=== PATIENT | female | born 1950 | race Caucasian/White ===

== ENCOUNTER 2017-12-18 15:21 | Inpatient (IN) | payer OTHER ==
[~2017-12-18] VITALS: Ht 175.3 cm; Wt 86.2 kg
[~2017-12-18 15:21] MED LIST: FISHOIL PO; FLUT50SP14 NAE; PANT40TA PO
[2017-12-18] MEDS ORDERED: ASPI81TA28 PO (15:44)
[2017-12-18] MEDS ORDERED: PIPERACILLIN/TAZOBACTAM 4.5 GM/100ML D5W IV STA (15:50)
[2017-12-18 16:12] LABS: BASO % 0.2 %; BASO ABS # 0.03 K/uL (0-0.2); EOS % 0.8 %; EOS ABS # 0.12 K/uL (0-0.5); HEMOGLOBIN 13.2 g/dL (12.0-16.0); IG# 0.04 K/uL (0.00-0.02); LYMPH % 22.6 %; MEAN CELL VOLUME 84.8 fL (80-100); MEAN CORPUSCULAR HEMOGLOBIN 29.5 pg (25-34); MEAN CORPUSCULAR HGB CONC 34.7 g/dl (32-36); MEAN PLATELET VOLUME 10.3 fL (7.4-10.4); MONO % 10.9 %; MONO ABS # 1.68 K/uL (0.11-0.59); NEUT % 65.2 %; NEUT ABS # 10.09 K/uL (1.4-6.5); PLATELET COUNT 219 K/uL (130-400); RED CELL DISTRIBUTION WIDTH CV 12.9 % (11.5-14.5); RED CELL DISTRIBUTION WIDTH SD 39.8 fL (36.4-46.3); WHITE BLOOD COUNT 15.46 K/uL (4.8-10.8)
[2017-12-18] MEDS ORDERED: ONDANSETRON INJ 2 MG/ML 2 ML VIAL IV PRN (16:15)
[2017-12-18] MEDS ORDERED: PIPERACILL/TAZOBAC CONSULT ACTIVE PRN (16:15)
[2017-12-18] MEDS ORDERED: MoRPHine SULFATE 2 MG/ML CARP IV PRN (16:15)
--- NOTE | 2017-12-18 16:19 | History and Physical ---
History & Physical Date & Time of Service: Dec 18, 2017 at 16:12 Chief Complaint: Perforated Angel Primary Care Physician: Marjan Mishra D.O. History of Present Illness 67 y/o female with several days lower abdominal pain similar to previous bouts of diverticulitis. Had outpatient CT today, referred to the ED for microperforation. Has had 3 or 4 previous attacks treated with outpatient antibiotics. Past Medical/Surgical History Medical Problems: 1. GERD Surgical history: 1. hysterectomy 2. cholecystectomy 3. tendon repair 4. colonoscopy Social History Smoking Status: Former Smoker Marital Status: Occupational Status: employed Multi-Drug Resistant Organisms History of MDRO: No Allergies Coded Allergies: Metronidazole (Unverified Allergy, Unknown, ., 12/18/17) Prednisone (Verified Allergy, Unknown, HIVES/RACING HEART, 12/18/17) Statins (Unverified Allergy, Unknown, ., 12/18/17) Sulfa Drugs (Verified Allergy, Unknown, ., 12/18/17) Venlafaxine (Verified Allergy, Unknown, ., 12/18/17) Home Medications Scheduled Aspirin (Aspirin Ec), 81 MG PO DAILY Pantoprazole (Protonix), 40 MG PO DAILY Review of Systems Constitutional: No fever, No chills Abdomen: + pain, No nausea, No vomiting Physical Exam Vital Signs Date Time Temp Pulse Resp B/P (MAP) Pulse Ox O2 Delivery O2 Flow Rate FiO2 12/18/17 15:30 37.5 110 17 155/79 96 Room Air General Appearance: WD/WN, no apparent distress Respiratory/Chest: no respiratory distress Cardiovascular: + tachycardia Abdomen/GI: soft, + tenderness (LLQ) Neurologic/Psych: alert, oriented x 3 Diagnostics Laboratory Results Results Past 24 Hours Test 12/18/17 15:55 Range/Units White Blood Count 15.46 4.8-10.8 K/uL Red Blood Count 4.48 4.2-5.4 M/uL Hemoglobin 13.2 12.0-16.0 g/dL Hematocrit 38.0 37-47 % Mean Corpuscular Volume 84.8 80-100 fL Mean Corpuscular Hemoglobin 29.5 25-34 pg Mean Corpuscular Hemoglobin Concent 34.7 32-36 g/dl Platelet Count 219 130-400 K/uL Mean Platelet Volume 10.3 7.4-10.4 fL Neutrophils (%) (Auto) 65.2 % Lymphocytes (%) (Auto) 22.6 % Monocytes (%) (Auto) 10.9 % Eosinophils (%) (Auto) 0.8 % Basophils (%) (Auto) 0.2 % Neutrophils # (Auto) 10.09 1.4-6.5 K/uL Lymphocytes # (Auto) 3.50 1.2-3.4 K/uL Monocytes # (Auto) 1.68 0.11-0.59 K/uL Eosinophils # (Auto) 0.12 0-0.5 K/uL Basophils # (Auto) 0.03 0-0.2 K/uL RDW Standard Deviation 39.8 36.4-46.3 fL RDW Coefficient of Variation 12.9 11.5-14.5 % Immature Granulocyte % (Auto) 0.3 % Immature Granulocyte # (Auto) 0.04 0.00-0.02 K/uL Impression Assessment and Plan diverticulitis with microperforation Does not have any acute abdominal findings. Will admit for IV abx, keep NPO for tonight. Hopefully will respond to conservative therapy. Seen in the ED with Dr. Esquivel. VTE Prophylaxis Risk Level: Very Low
[2017-12-18 16:31] LABS: ALBUMIN 3.4 gm/dl (3.4-5.0); CALCIUM 8.9 mg/dl (8.5-10.1); CREATININE 0.66 mg/dl (0.60-1.20); POTASSIUM 3.7 mmol/L (3.5-5.1)
[2017-12-18 16:33] LABS: TOTAL PROTEIN 8.4 gm/dl (6.4-8.2)
[2017-12-18 17:23] VITALS: BP 144/82; PULSE 104; TEMP 37.2; O2SAT 96; Ht 175.3 cm; Wt 86.2 kg
[2017-12-18] MEDS: D5W AND 1/2NSS + 20MEQ KCL 1,000 ML IV SCH (19:13)
--- NOTE | 2017-12-18 19:48 | EMERGENCY ROOM VISIT NOTE ---
History Report prepared by Tanmay: Astrid Galaviz Under the Supervision of: Dr. Rolando Ernst D.O. First contact with patient: 15:35 Chief Complaint: ABDOMINAL PAIN Stated Complaint: PERFORATED LAZARA History of Present Illness The patient is a 67 year old female who presents to the Emergency Room with complaints of worsening diffuse lower abdominal pain for the past 3-4 days. Her pain is worse on the right side. She has also been having mucousy stools. The patient has a history of diverticulitis. She has had diverticulitis 4-5 times in the past. She states that this feels like her previous episodes of diverticulitis. She describes her abdominal pain as a "sharp, stabbing" pain and rates it as a 10/10 at the most severe. She has been using a heating pad to alleviate her pain. She followed up with her PCP and they ordered Cipro and a CT scan. The patient states that she has not picked up the Cipro from the pharmacy yet. She was called today with the results of the CT. She was told there was a perforation and she should come to the ED for further evaluation. Pt denies headache, change in vision, fevers, chest pain, shortness of breath, nausea, vomiting, diarrhea, urinary symptoms, hematochezia, and melena. Source of History: patient Onset: 3-4 days ago Position: abdomen Symptom Intensity: 10/10 Quality: sharp, stabbing Timing: worsening Modifying Factors (Relieving): heat Associated Symptoms: No fevers, No headache, No chest pain, No SOB, No nausea, No vomiting, No melena, No hematochezia, No diarrhea, No urinary symptoms Review of Systems See HPI for pertinent positives & negatives. A total of 10 systems reviewed and were otherwise negative. Past Medical & Surgical Medical Problems: (1) Diverticulitis large intestine (2) Esophageal reflux (3) Hypertension (4) Prepatellar bursitis (5) Synovitis Surgical Problems: (1) History of hysterectomy (2) Hx of cholecystectomy Family History Cancer Social History Smoking Status: Former Smoker Marital Status: Housing Status: lives with significant other Occupation Status: retired Current/Historical Medications Scheduled Aspirin (Aspirin Ec), 81 MG PO DAILY Pantoprazole (Protonix), 40 MG PO DAILY Allergies Coded Allergies: Metronidazole (Unverified Allergy, Unknown, ., 12/18/17) Prednisone (Verified Allergy, Unknown, HIVES/RACING HEART, 12/18/17) Statins (Unverified Allergy, Unknown, ., 12/18/17) Sulfa Drugs (Verified Allergy, Unknown, ., 12/18/17) Venlafaxine (Verified Allergy, Unknown, ., 12/18/17) Physical Exam Vital Signs Date Time Temp Pulse Resp B/P (MAP) Pulse Ox O2 Delivery O2 Flow Rate FiO2 12/18/17 15:30 37.5 110 17 155/79 96 Room Air Physical Exam GENERAL: Sitting up in bed, alert, well appearing, well nourished, no distress, non-toxic EYE EXAM: normal conjunctiva. OROPHARYNX: no exudate, no erythema, lips, buccal mucosa, and tongue normal and mucous membranes are moist NECK: supple, no nuchal rigidity, no adenopathy, non-tender LUNGS: Clear to auscultation. Normal chest wall mechanics HEART: no murmurs, S1 normal and S2 normal ABDOMEN: abdomen soft, acute reproducible tenderness throughout the lower abdomen, normo-active bowel sounds, no masses, no rebound or guarding. BACK: Back is symmetrical on inspection and there is no deformity, no midline tenderness, no CVA tenderness. SKIN: no rashes and no bruising UPPER EXTREMITIES: upper extremities are grossly normal. LOWER EXTREMITIES: No pitting edema. NEURO EXAM: Normal sensorium, cranial nerves II-XII grossly intact, normal speech, no gross weakness of arms, no gross weakness of legs. Medical Decision & Procedures Laboratory Results 12/18/17 15:55 Red Blood Count 4.48, Mean Corpuscular Volume 84.8, Mean Corpuscular Hemoglobin 29.5, Mean Corpuscular Hemoglobin Concent 34.7, Mean Platelet Volume 10.3, Neutrophils (%) (Auto) 65.2, Lymphocytes (%) (Auto) 22.6, Monocytes (%) (Auto) 10.9, Eosinophils (%) (Auto) 0.8, Basophils (%) (Auto) 0.2, Neutrophils # (Auto ) 10.09, Lymphocytes # (Auto) 3.50, Monocytes # (Auto) 1.68, Eosinophils # (Auto ) 0.12, Basophils # (Auto) 0.03 12/18/17 15:55 Test 3/20/18 15:55 12/18/17 16:00 White Blood Count 15.46 K/uL (4.8-10.8) Red Blood Count 4.48 M/uL (4.2-5.4) Hemoglobin 13.2 g/dL (12.0-16.0) Hematocrit 38.0 % (37-47) Mean Corpuscular Volume 84.8 fL (80-100) Mean Corpuscular Hemoglobin 29.5 pg (25-34) Mean Corpuscular Hemoglobin Concent 34.7 g/dl (32-36) Platelet Count 219 K/uL (130-400) Mean Platelet Volume 10.3 fL (7.4-10.4) Neutrophils (%) (Auto) 65.2 % Lymphocytes (%) (Auto) 22.6 % Monocytes (%) (Auto) 10.9 % Eosinophils (%) (Auto) 0.8 % Basophils (%) (Auto) 0.2 % Neutrophils # (Auto) 10.09 K/uL (1.4-6.5) Lymphocytes # (Auto) 3.50 K/uL (1.2-3.4) Monocytes # (Auto) 1.68 K/uL (0.11-0.59) Eosinophils # (Auto) 0.12 K/uL (0-0.5) Basophils # (Auto) 0.03 K/uL (0-0.2) RDW Standard Deviation 39.8 fL (36.4-46.3) RDW Coefficient of Variation 12.9 % (11.5-14.5) Immature Granulocyte % (Auto) 0.3 % Immature Granulocyte # (Auto) 0.04 K/uL (0.00-0.02) Anion Gap 8.0 mmol/L (3-11) Est Creatinine Clear Calc Drug Dose 99.6 ml/min Estimated GFR () 107.4 Estimated GFR (Non- 92.7 BUN/Creatinine Ratio 14.8 (10-20) Calcium Level 8.9 mg/dl (8.5-10.1) Total Bilirubin 0.8 mg/dl (0.2-1) Direct Bilirubin 0.2 mg/dl (0-0.2) Aspartate Amino Transf (AST/SGOT) 13 U/L (15-37) Alanine Aminotransferase (ALT/SGPT) 10 U/L (12-78) Alkaline Phosphatase 89 U/L (45-117) Total Protein 8.4 gm/dl (6.4-8.2) Albumin 3.4 gm/dl (3.4-5.0) Lipase 117 U/L (73-393) Urine Color YELLOW Urine Appearance CLEAR (CLEAR) Urine pH 6.5 (4.5-7.5) Urine Specific [place] <= 1.005 (1.000-1.030) Urine Protein TRACE (NEG) Urine Glucose (UA) NEG (NEG) Urine Ketones NEG (NEG) Urine Occult Blood 1+ (NEG) Urine Nitrite NEG (NEG) Urine Bilirubin NEG (NEG) Urine Urobilinogen NEG (NEG) Urine Leukocyte Esterase NEG (NEG) Urine RBC 0-4 /hpf (0-4) Urine WBC 1-5 /hpf (0-5) Urine Epithelial Cells 0-5 /lpf (0-5) Urine Bacteria NEG (NEG) Laboratory results per my review. Medications Administered Medications (Trade) Dose Ordered Sig/Christina Route Start Time Stop Time Status Last Admin Dose Admin Piperacillin Sod/ Tazobactam Sod (Zosyn Iv) 4.5 gm NOW STAT IV 12/18/17 15:50 12/18/17 15:51 DC 12/18/17 15:56 4.5 GM ED Course ED COURSE: Vital signs were reviewed and showed tachycardic, hypertensive. The patients medical record was reviewed The above diagnostic studies were performed and reviewed. ED treatments and interventions as stated above. 1535: The patient was evaluated in room A10. A complete history and physical examination was performed. 1550: Zosyn 4.5 gm IV 1551: I spoke with Dr. Esquivel of general surgery. The patient will be taken to the OR for further management. 1555: Upon reevaluation, the patient is stable. I discussed my findings with the patient and she understands and agrees with the treatment plan. Based on the patients age, coexisting illnesses, exam and lab findings the decision to treat as an inpatient was made. The patient remained stable while under my care. The patient will be evaluated for further management. Medical Decision Differential diagnoses includes but is not limited to gastritis, peptic ulcer disease, GERD, gallbladder disease, pancreatitis, small bowel obstruction, acute coronary syndrome, pericarditis, ischemic bowel, irritable bowel disease, irritable bowel syndrome, appendicitis, diverticulitis, malignancy, hernia, urinary tract infection, torsion, perforation, trauma, infectious. Patient is a 67-year-old female who presents the ER following a CT which shows perforated diverticulitis which is walled off. Outpatient records were reviewed including CT scan which showed the walled off diverticulitis of the sigmoid. Patient is a mild leukocytosis. BMP along with LFTs, bilirubin lipase was normal. UA unremarkable. I did review the CT done as an outpatient. Patient was given IV antibiotics. I discussed case with general surgery. She was admitted for further workup. Patient was updated at bedside and admitted to general surgery. Medication Reconcilliation Current Medication List: was personally reviewed by me Blood Pressure Screening Patient's blood pressure: Elevated blood pressure Blood pressure disposition: Elevated BP felt to be situational Consults Time Called: 1550 Consulting Physician: Dr. Esquivel Returned Call: [phone] sEquivel of general surgery. The patient will be taken to the OR for further management. Impression Primary Impression: Diverticulitis of intestine with perforation Additional Impression: Leukocytosis Scribe Attestation The scribe's documentation has been prepared under my direction and personally reviewed by me in its entirety. I confirm that the note above accurately reflects all work, treatment, procedures, and medical decision making performed by me. Departure Information Dispostion Being Evaluated By Surgeon Referrals No Doctor, Assigned (PCP) Patient Instructions My [facility] Problem Qualifiers Primary Impression: Diverticulitis of intestine with perforation Diverticulitis site: unspecified part of intestinal tract Diverticulitis bleeding: unspecified bleeding status Qualified Codes: K57.80 - Diverticulitis of intestine, part unspecified, with perforation and abscess without bleeding Additional Impression: Leukocytosis Leukocytosis type: unspecified Qualified Codes: D72.829 - Elevated white blood cell count, unspecified
[2017-12-18] MEDS: PIPERACILL/TAZOBAC IV 3.375 GM in DEXTROSE 5% 100ML 100 ML IV SCH (21:40)
[2017-12-18 23:04] VITALS: BP 121/75; PULSE 91; TEMP 37; O2SAT 98
[2017-12-19] MEDS: D5W AND 1/2NSS + 20MEQ KCL 1,000 ML IV SCH (03:14)
[2017-12-19] MEDS: PIPERACILL/TAZOBAC IV 3.375 GM in DEXTROSE 5% 100ML 100 ML IV SCH (05:28)
--- NOTE | 2017-12-19 07:37 | Surgery Progress Note ---
Surgery Progress Note Date of Service Dec 19, 2017. Subjective + feeling well, + flatus, No bowel movement, No nausea Objective Vital Signs: Date Time Temp Pulse Resp B/P (MAP) Pulse Ox O2 Delivery O2 Flow Rate FiO2 12/18/17 23:25 Room Air 12/18/17 23:04 37.0 91 17 121/75 (90) 98 Room Air 12/18/17 17:23 37.2 104 18 144/82 96 Room Air 12/18/17 17:23 Room Air 12/18/17 17:04 108 143/75 96 12/18/17 15:30 37.5 110 17 155/79 96 Room Air Abdomen: soft, + tenderness (minimal suprapubic) Laboratory Results: Results Past 24 Hours Test 12/18/17 15:55 12/18/17 16:00 12/19/17 04:44 Range/Units White Blood Count 15.46 4.8-10.8 K/uL Red Blood Count 4.48 4.2-5.4 M/uL Hemoglobin 13.2 12.0-16.0 g/dL Hematocrit 38.0 37-47 % Mean Corpuscular Volume 84.8 80-100 fL Mean Corpuscular Hemoglobin 29.5 25-34 pg Mean Corpuscular Hemoglobin Concent 34.7 32-36 g/dl Platelet Count 219 130-400 K/uL Mean Platelet Volume 10.3 7.4-10.4 fL Neutrophils (%) (Auto) 65.2 % Lymphocytes (%) (Auto) 22.6 % Monocytes (%) (Auto) 10.9 % Eosinophils (%) (Auto) 0.8 % Basophils (%) (Auto) 0.2 % Neutrophils # (Auto) 10.09 1.4-6.5 K/uL Lymphocytes # (Auto) 3.50 1.2-3.4 K/uL Monocytes # (Auto) 1.68 0.11-0.59 K/uL Eosinophils # (Auto) 0.12 0-0.5 K/uL Basophils # (Auto) 0.03 0-0.2 K/uL RDW Standard Deviation 39.8 36.4-46.3 fL RDW Coefficient of Variation 12.9 11.5-14.5 % Immature Granulocyte % (Auto) 0.3 % Immature Granulocyte # (Auto) 0.04 0.00-0.02 K/uL Sodium Level 132 136-145 mmol/L Potassium Level 3.7 3.5-5.1 mmol/L Chloride Level 100 98-107 mmol/L Carbon Dioxide Level 24 21-32 mmol/L Anion Gap 8.0 3-11 mmol/L Blood Urea Nitrogen 10 7-18 mg/dl Creatinine 0.66 0.60-1.20 mg/dl Est Creatinine Clear Calc Drug Dose 99.6 ml/min Estimated GFR () 107.4 Estimated GFR (Non- 92.7 BUN/Creatinine Ratio 14.8 10-20 Random Glucose 103 70-99 mg/dl Calcium Level 8.9 8.5-10.1 mg/dl Total Bilirubin 0.8 0.2-1 mg/dl Direct Bilirubin 0.2 0-0.2 mg/dl Aspartate Amino Transf (AST/SGOT) 13 15-37 U/L Alanine Aminotransferase (ALT/SGPT) 10 12-78 U/L Alkaline Phosphatase 89 45-117 U/L Total Protein 8.4 6.4-8.2 gm/dl Albumin 3.4 3.4-5.0 gm/dl Lipase 117 73-393 U/L Urine Color YELLOW Urine Appearance CLEAR CLEAR Urine pH 6.5 4.5-7.5 Urine Specific [place] <= 1.005 1.000-1.030 Urine Protein TRACE NEG Urine Glucose (UA) NEG NEG Urine Ketones NEG NEG Urine Occult Blood 1+ NEG Urine Nitrite NEG NEG Urine Bilirubin NEG NEG Urine Urobilinogen NEG NEG Urine Leukocyte Esterase NEG NEG Urine RBC 0-4 0-4 /hpf Urine WBC 1-5 0-5 /hpf Urine Epithelial Cells 0-5 0-5 /lpf Urine Bacteria NEG NEG Assessment & Plan diverticulitis with microperf labs pending exam improved afebrile but HR 90's continue IV abx, can have clears
[2017-12-19 08:00] VITALS: BP 127/83; PULSE 88; TEMP 36.8; O2SAT 95
[2017-12-19 08:25] LABS: BASO % 0.3 %; BASO ABS # 0.03 K/uL (0-0.2); EOS % 1.8 %; EOS ABS # 0.21 K/uL (0-0.5); HEMATOCRIT 38.9 % (37-47); HEMOGLOBIN 12.9 g/dL (12.0-16.0); IG# 0.03 K/uL (0.00-0.02); LYMPH % 19.5 %; LYMPH ABS # 2.27 K/uL (1.2-3.4); MEAN CELL VOLUME 85.5 fL (80-100); MEAN CORPUSCULAR HEMOGLOBIN 28.4 pg (25-34); MEAN CORPUSCULAR HGB CONC 33.2 g/dl (32-36); MEAN PLATELET VOLUME 10.4 fL (7.4-10.4); MONO % 9.6 %; MONO ABS # 1.11 K/uL (0.11-0.59); NEUT % 68.5 %; NEUT ABS # 7.97 K/uL (1.4-6.5); PLATELET COUNT 220 K/uL (130-400); RED CELL DISTRIBUTION WIDTH CV 12.9 % (11.5-14.5); RED CELL DISTRIBUTION WIDTH SD 40.2 fL (36.4-46.3); WHITE BLOOD COUNT 11.62 K/uL (4.8-10.8)
[2017-12-19 08:27] VITALS: O2SAT 95
[2017-12-19 08:53] LABS: CALCIUM 8.6 mg/dl (8.5-10.1); CREATININE 0.62 mg/dl (0.60-1.20); POTASSIUM 3.7 mmol/L (3.5-5.1)
[2017-12-19] MEDS ORDERED: ASPIRIN 81 MG ECTAB PO SCH (09:00)
[2017-12-19] MEDS ORDERED: PANTOprazole SOD 40 MG TAB PO SCH (09:00)
--- NOTE | 2017-12-19 11:35 | Discharge Instructions ---
Discharge Instructions Date of Service Dec 19, 2017. Admission Reason for Admission: Diverticulitis Large Intestine Discharge Discharge Diagnosis / Problem: Diverticulitis Large Intestine Discharge Goals Goal(s): Decrease discomfort, Improve function Activity Recommendations Activity Limitations: as noted below Lifting Limitations: gradually increase as tolerated Exercise/Sports Limitations: gradually increase as tolerated May Resume Sexual Activity: when tolerated Shower/Bathe: no limitations Driving or Machine Use: no limitations . Instructions / Follow-Up Instructions / Follow-Up Please follow a low fiber diet. Please follow-up with Dr. Esquivel in the General Surgery Clinic located at [address] [place] [address] in 1-2 weeks. Please call the office at to make this appointment. Please call the office with any questions or concerns. Current Hospital Diet Patient's current hospital diet: Clear Liquid Diet Discharge Diet Recommended Diet: Low Fiber Diet Pending Studies Studies pending at discharge: no Medical Emergencies . Who to Call and When: Medical Emergencies: If at any time you feel your situation is an emergency, please call 911 immediately. . Non-Emergent Contact Non-Emergency issues call your: Primary Care Provider, Surgeon Call Non-Emergent contact if: temperature is above 101.5, your pain is not controlled . "Provider Documentation" section prepared by Christina Vang. .
[2017-12-19] MEDS ORDERED: AMOX875T PO (11:36)
[2017-12-19 12:07] VITALS: BP 127/83; PULSE 88; TEMP 36.8; O2SAT 95
--- NOTE | 2017-12-24 09:25 | DISCHARGE SUMMARY ---
PRIMARY DISCHARGE DIAGNOSIS: Diverticulitis with microperforation. SECONDARY DISCHARGE DIAGNOSIS: Gastroesophageal reflux disease. HOSPITAL COURSE: The patient is a 67-year-old female with a history of several diverticulitis attacks, referred to the Emergency Room after outpatient CT showing diverticulitis with microperforation. Her white count was 15,000. She was admitted to the general surgery service, started on IV Zosyn. She made significant progress over the next 24 hours. Her white count had improved. She was able to tolerate an advancing diet. She was stable for discharge home on oral antibiotics. DISCHARGE INSTRUCTIONS: Discharge home. Follow up with Dr. Esquivel in 2 weeks. DISCHARGE MEDICATIONS: Augmentin 875 mg p.o. b.i.d. x10 and resume her home medications of aspirin 81 mg daily and Protonix 40 mg p.o. daily.
== END 2017-12-19 13:19 | disposition home or self-care (01) | DRG 392 ==
LOC: C.EDB 15:24 → C.MSW 16:12 → ENRESERV 16:46
PROVIDERS: ADMIT Surgery; ATTEND Surgery
DX: K57.80 Diverticulitis of intestine, part unspecified, with perforation and abscess without bleeding (principal); K21.9 Gastro-esophageal reflux disease without esophagitis; I10 Essential (primary) hypertension; Z87.891 Personal history of nicotine dependence; Z88.2 Allergy status to sulfonamides; Z88.8 Allergy status to other drugs, medicaments and biological substances; Z79.82 Long term (current) use of aspirin

== ENCOUNTER 2018-01-17 10:00 | Inpatient (IN) | payer OTHER ==
[2018-01-04 13:45] VITALS: BMI 27.0
[~2018-01-17] VITALS: Ht 175.3 cm; Wt 84.0 kg
[2018-01-17] VITALS (9 sets, daily range): BP systolic 147–165; BP diastolic 70–81; PULSE 89–98; TEMP 36.4–36.9; O2SAT 95–100
--- NOTE | 2018-01-17 09:48 | History & Physical Bridge Note ---
H&P Re-Evaluation Bridge Note: I have examined the patient, reviewed the History & Physical and in the interval since the performance of the History & Physical I have noted the following changes of clinical significance: No changes noted
[~2018-01-17 10:00] MED LIST changes: +ASPI81TA28 PO; +ATROPINE SULFATE 0.1 MG/ML 5ML SYR IV PRN; +CEFAZOLIN 2000MG IV PUSH 15 ML IV SCH; +EpHEDrine SULFATE INJ 50 MG/ML AMP IV PRN; -FISHOIL PO; -FLUT50SP14 NAE; +HEPARIN SOD 5000 UNIT/0.5 ML CARP SQ SCH; +HYDROmorphone INJ 2 MG/ML SYR/VIAL IV PRN; +LABETALOL HCL IV 5 MG/ML 20ML IV PRN; +LACTATED RINGER'S 1000ML 1,000 ML IV SCH; +MEPERIDINE HCL 25 MG/ML CARP IV PRN; +ONDANSETRON INJ 2 MG/ML 2 ML VIAL IV PRN
[2018-01-17] MEDS ORDERED: BUPIVACAINE/EPINEPHRINE 0.5% MPF 1:200,000 30 ML VIAL ONE (10:03)
[2018-01-17] MEDS ORDERED: MIDAZOLAM HCL 1 MG/ML 2ML VIAL ONE (10:50)
[2018-01-17] MEDS ORDERED: FENTANYL CITRATE INJ 50 MCG/1 ML 2 ML VIAL ONE ×3 (10:50→11:44)
[2018-01-17] MEDS ORDERED: HYDROmorphone INJ 2 MG/ML SYR/VIAL ONE ×2 (11:48→13:05)
--- NOTE | 2018-01-17 13:02 | [facility] Post Operative Brief Note ---
Immediate Operative Summary Operative Date Jan 17, 2018. Pre-Operative Diagnosis Diverticulitis Post-Operative Diagnosis Same as preop Procedure(s) Performed Laparoscopic Sigmoid Colon Resection; Enterolysis; Left Salpingo-Oophorectomy Surgeon Dr. Esquivel Apron Cleaner Surgeon(s) Dru Rubio PA-C Estimated Blood Loss 30 ml Findings See Below left ovary/tube severely adhesed to sigmoid colon Specimens A. Sigmoid Colon B. Left Tube and Ovary Anesthesia Type General Complication(s) none
[2018-01-17] MEDS ORDERED: KETOROLAC TROMETHAMINE 30 MG/ML VIAL ONE (13:13)
[2018-01-17] MEDS ORDERED: DEXAMETHASONE SOD INJ 4 MG/ML VIAL ONE (13:13)
[2018-01-17] MEDS ORDERED: ONDANSETRON INJ 2 MG/ML 2 ML VIAL ONE (13:13)
[2018-01-17] MEDS ORDERED: GLYCOPYRROLATE INJ 0.2 MG/ML VIAL ONE (13:13)
[2018-01-17] MEDS ORDERED: ROCURONIUM BROMIDE 10 MG/ML 5 ML VIAL IV ONE (13:13)
[2018-01-17] MEDS ORDERED: NEOSTIGMINE METHYLSULFATE 5 MG/5 ML SYR ONE (13:13)
[2018-01-17] MEDS ORDERED: LIDOCAINE HCL 2% 2 ML VIAL (20MG/ML) ONE (13:13)
[2018-01-17] MEDS ORDERED: PROPOFOL IV EMULSION 10 MG/ML 20 ML VIAL IV ONE (13:13)
[2018-01-17] MEDS ORDERED: MoRPHine SULFATE 4 MG/ML 1 ML CARP\\VIAL IV PRN (13:15)
[2018-01-17] MEDS ORDERED: ESMOLOL HCL 10 MG/ML 10 ML VIAL ONE (13:18)
[2018-01-17] MEDS: FENTANYL CITRATE INJ 50 MCG/1 ML 2 ML VIAL IV PRN ×2 (13:32→13:55)
[2018-01-17] MEDS ORDERED: NURSING VERBAL MED ORDER ONE (14:00)
--- NOTE | 2018-01-17 14:01 | Anesthesiology Progress Note ---
Anesthesia Post Op Note Date & Time Jan 17, 2018 at 14:01 Vital Signs Pain Intensity: 4.0 Vital Signs Past 12 Hours Date Time Temp Pulse Resp B/P (MAP) Pulse Ox O2 Delivery O2 Flow Rate FiO2 01/17/18 13:50 91 13 156/64 95 Nasal Cannula 2 01/17/18 13:40 88 12 159/66 99 Oxymask 10 01/17/18 13:30 86 16 163/75 99 Oxymask 10 01/17/18 13:20 36.3 84 18 105/96 97 Oxymask 10 01/17/18 10:26 36.9 96 18 152/81 97 Room Air Notes Mental Status: alert / awake / arousable, participated in evaluation Pt Amnestic to Procedure: Yes Nausea / Vomiting: adequately controlled Pain: adequately controlled Airway Patency, RR, SpO2: stable & adequate BP & HR: stable & adequate Hydration State: stable & adequate Anesthetic Complications: no major complications apparent
[2018-01-17] MEDS ORDERED: PROMETHAZINE HCL INJ 12.5 MG in SODIUM CHLORIDE 0.9% 50ML 50 ML IV ONE (14:15)
--- NOTE | 2018-01-17 14:48 | [facility] Operative Report ---
Operative Report Operative Date Jan 17, 2018. Pre-Operative Diagnosis Diverticulitis Post-Operative Diagnosis Same as preop Procedure(s) Performed Laparoscopic Sigmoid Colon Resection; Enterolysis; Left Salpingo-Oophorectomy Surgeon Dr. Esquivel Coach Mechanic Surgeon(s) Dru Rubio PA-C Estimated Blood Loss 30 ml Findings left ovary/tube severely adhesed to sigmoid colon Specimens A. Sigmoid Colon B. Left Tube and Ovary Anesthesia Type General Complication(s) none Description of Procedure After informed consent was obtained the patient was taken to the operating room and placed in the supine position. After successful intubation the right arm was tucked and a Fay catheter was placed. The patient was then placed into a low lithotomy position. The abdomen and perineum were sterilely prepped and draped in usual fashion. I began with an infraumbilical incision with 11 blade scalpel and carried this down through the soft tissue using electrocautery. The anterior rectus fascia was opened using electrocautery and 2 #0 Vicryl stay sutures were placed. Peritoneum was entered using blunt finger penetration and a finger sweep was performed to take down any underlying adhesions. A 12 mm Crum trocar was placed in the abdomen was insufflated to 20 mm hg. The laparoscope was inserted and the abdomen was examined in 360. I placed a right lower quadrant 12 mm trocar and a right mid abdominal 5 mm trocar. Eventually we would place a left lower quadrant 5 mm trocar as well. The patient was placed in a Trendelenburg position and slightly air planed to the right. There were some adhesions in the lower abdomen which I took down using blunt dissection as well as a harmonic scalpel. I then mobilized and evaluated the left and sigmoid colon. From the peritoneal reflection up to the proximal sigmoid colon there was obvious evidence of chronic inflammation with fat wrapping and firmness. This was much different than the remainder of her left colon and rectum. I began by mobilizing the left colon along the white line of Toldt. We carried this down to the peritoneal reflection in the pelvis. We were able to identify the left ureter to keep it out of harm's way. However during my dissection we realized that the left ovary and fallopian tube were essentially to the inflamed sigmoid colon. Initially I tried to dissect this free however it was going to be apparent that it would be too dangerous to leave it for fear of ischemia. We would end up totally resecting the ovary and fallopian tube at the end of the case. Nonetheless after mobilizing the colon I picked a spot in the proximal sigmoid colon and made a small window in the mesentery. I used a NICOL purple cartridge stapler to transect the colon in this area. I then used the sonocision to take down the mesentery of the sigmoid colon down to the rectum itself. When we got down past the area of chronic inflammation I then transected the rectum again with a NICOL purple cartridge stapler. I finished mobilizing the left colon. There was plenty of nice soft viable bowel that would come down into the pelvis to create anastomosis. We extended the left lower quadrant incision including the fascia and delivered the specimen out of this and sent at the pathology. We then delivered the distal left colon out of the same incision using a Michele clamp. I resected about another 2-3 inches because of some fat wrapping in this area as well. We just did this by stapling it off with a purple cartridge stapler. Next we trimmed the fat off of the end of the colon and then opened up the staple line. We used sizers to estimate the lumen to be 25 mm. A 2-0 silk was used to create a pursestring and the anvil of the stapler was placed into the end of the colon and secured with the pursestring. This was then put back into the abdominal cavity. The fascia this incision was then closed using 0 PDS in running fashion. Next a reinsufflated the abdomen. The anvil laid over the pelvic brim and into the pelvis without any tension. I elevated the remainder of the ovary and left fallopian tube. I used a brown cartridge stapler to transect the ovarian vessels and remove the ovary and fallopian tube and sent as a specimen as well. Certainly they did not look healthy and thus they made the decision to remove it in addition to the left colon. Next we inserted sizers into the rectum. We then placed the handle of the circular stapler into the rectum and out to the staple line. The spike was deployed. The handle was connected to the anvil and they were secured together and fired creating a circular functional end-to-end anastomosis. We then filled the pelvis with fluid and I pinched off the proximal colon. We inflated the anastomosis with a rigid sigmoidoscope. There was no evidence of any air leak. I then thoroughly irrigated the pelvis. Both donuts were intact. I placed a 10 flat Farhad- Peterson drain into the pelvis and brought out through 1 of the port sites. It was secured to skin using 2-0 silk. One final irrigation was performed. There was adequate hemostasis at the end of the procedure. We did look around the abdomen and saw no other gross abnormalities. The trochars were all removed and the abdomen was desufflated. The fascia of the camera port was closed using 0 Vicryl in a [id number] fashion. All wounds were irrigated. The larger wound was closed with 3-0 Vicryl and then 4-0 Monocryl for the skin. The smaller incisions were closed with 4-0 Monocryl. Marcaine was injected around them for postoperative analgesia and skin glue used as a dressing. The patient was awaken extubated and transferred to recovery in stable condition. My physician's prosthetic assistant was present throughout the entire case. He helps prep the patient. He helped with manipulation of the bowel as well as managing the camera throughout the case. He helped with the anastomosis as well as wound closure and dressing placement at the end of the case. I attest to the content of the Intraoperative Record and any orders documented therein. Any exceptions are noted below.
[2018-01-17] MEDS: ONDANSETRON INJ 2 MG/ML 2 ML VIAL IV PRN ×2 (15:30→21:10)
[2018-01-17] MEDS: LACTATED RINGER'S 1000ML 1,000 ML IV SCH ×2 (15:31→22:24)
[2018-01-17] MEDS: ACETAMINOPHEN IV 100 ML IV SCH ×2 (15:52→23:50)
[2018-01-17] MEDS: CEFOXITIN IV 2,000 MG in DEXTROSE 5% 50ML 50 ML IV SCH ×2 (17:39→22:24)
[2018-01-18 03:46] VITALS: BP 124/66; PULSE 89; TEMP 36.8; O2SAT 94
[2018-01-18] MEDS: CEFOXITIN IV 2,000 MG in DEXTROSE 5% 50ML 50 ML IV SCH (04:57)
[2018-01-18] MEDS: LACTATED RINGER'S 1000ML 1,000 ML IV SCH ×3 (04:58→22:30)
[2018-01-18 07:08] LABS: BASO % 0.2 %; BASO ABS # 0.02 K/uL (0-0.2); EOS % 0.2 %; EOS ABS # 0.02 K/uL (0-0.5); HEMATOCRIT 34.4 % (37-47); HEMOGLOBIN 11.9 g/dL (12.0-16.0); IG# 0.04 K/uL (0.00-0.02); LYMPH % 26.1 %; LYMPH ABS # 3.19 K/uL (1.2-3.4); MEAN CELL VOLUME 83.9 fL (80-100); MEAN CORPUSCULAR HGB CONC 34.6 g/dl (32-36); MEAN PLATELET VOLUME 10.5 fL (7.4-10.4); MONO ABS # 1.35 K/uL (0.11-0.59); NEUT % 62.2 %; NEUT ABS # 7.62 K/uL (1.4-6.5); PLATELET COUNT 214 K/uL (130-400); RED CELL DISTRIBUTION WIDTH CV 12.7 % (11.5-14.5); RED CELL DISTRIBUTION WIDTH SD 38.8 fL (36.4-46.3); WHITE BLOOD COUNT 12.24 K/uL (4.8-10.8)
--- NOTE | 2018-01-18 07:09 | Surgery Progress Note ---
Surgery Progress Note Date of Service Jan 18, 2018. Subjective Post OP Day: 1 + feeling well, + pain controlled, No nausea Objective Vital Signs: Date Time Temp Pulse Resp B/P (MAP) Pulse Ox O2 Delivery O2 Flow Rate FiO2 01/18/18 03:46 36.8 89 16 124/66 (85) 94 Room Air 01/17/18 23:50 Room Air 01/17/18 23:04 36.8 90 16 150/75 (100) 96 Room Air 01/17/18 18:07 36.6 98 16 147/76 (99) 99 Room Air 01/17/18 17:35 99 Room Air 01/17/18 16:40 36.4 90 16 165/78 (107) 100 Room Air 01/17/18 15:43 36.5 90 16 165/75 (105) 99 Nasal Cannula 01/17/18 15:20 Nasal Cannula 2.0 01/17/18 15:07 36.4 89 16 159/75 (103) 99 2.0 01/17/18 14:42 95 Nasal Cannula 2.0 01/17/18 14:40 95 Nasal Cannula 2.0 01/17/18 14:38 36.4 91 15 158/70 (99) 95 Nasal Cannula 2.0 01/17/18 14:30 92 19 151/63 96 Nasal Cannula 2 01/17/18 14:20 88 20 150/66 98 Nasal Cannula 2 01/17/18 14:10 36.6 87 15 147/63 96 Nasal Cannula 2 01/17/18 14:00 91 15 154/61 98 Nasal Cannula 2 01/17/18 13:50 91 13 156/64 95 Nasal Cannula 2 01/17/18 13:40 88 12 159/66 99 Oxymask 10 01/17/18 13:30 86 16 163/75 99 Oxymask 10 01/17/18 13:20 36.3 84 18 105/96 97 Oxymask 10 01/17/18 10:26 36.9 96 18 152/81 97 Room Air Physical Exam: PATY drainage (20), urine output (2300) Abdomen: non tender, non distended, soft Incision(s): clean, dry, ecchymosis Laboratory Results: Results Past 24 Hours Test 01/18/18 06:25 Range/Units Assessment & Plan s/p lap sigmoid colectomy d/c saldana begin clears Lovenox to start today labs pending
[2018-01-18 07:14] LABS: PTT PATIENT 24.7 SECONDS (21.0-31.0)
--- NOTE | 2018-01-18 07:14 | Surgery Progress Note ---
Surgery Progress Note Date of Service Jan 18, 2018. Subjective Post OP Day: 1 + feeling well, + pain controlled, + diet (Tolerating chips/sips), No complaints , No bowel movement, No flatus, No nausea, No vomiting Patient reports her saldana is uncomfortable and she would like it removed so that she can start ambulating. Objective Vital Signs: Date Time Temp Pulse Resp B/P (MAP) Pulse Ox O2 Delivery O2 Flow Rate FiO2 01/18/18 03:46 36.8 89 16 124/66 (85) 94 Room Air 01/17/18 23:50 Room Air 01/17/18 23:04 36.8 90 16 150/75 (100) 96 Room Air 01/17/18 18:07 36.6 98 16 147/76 (99) 99 Room Air 01/17/18 17:35 99 Room Air 01/17/18 16:40 36.4 90 16 165/78 (107) 100 Room Air 01/17/18 15:43 36.5 90 16 165/75 (105) 99 Nasal Cannula 01/17/18 15:20 Nasal Cannula 2.0 01/17/18 15:07 36.4 89 16 159/75 (103) 99 2.0 01/17/18 14:42 95 Nasal Cannula 2.0 01/17/18 14:40 95 Nasal Cannula 2.0 01/17/18 14:38 36.4 91 15 158/70 (99) 95 Nasal Cannula 2.0 01/17/18 14:30 92 19 151/63 96 Nasal Cannula 2 01/17/18 14:20 88 20 150/66 98 Nasal Cannula 2 01/17/18 14:10 36.6 87 15 147/63 96 Nasal Cannula 2 01/17/18 14:00 91 15 154/61 98 Nasal Cannula 2 01/17/18 13:50 91 13 156/64 95 Nasal Cannula 2 01/17/18 13:40 88 12 159/66 99 Oxymask 10 01/17/18 13:30 86 16 163/75 99 Oxymask 10 01/17/18 13:20 36.3 84 18 105/96 97 Oxymask 10 01/17/18 10:26 36.9 96 18 152/81 97 Room Air Physical Exam: PATY drainage (105 ml yesterday, 20 ml so far today. Serosang.) General Appearance: WD/WN, no apparent distress Head: normocephalic, atraumatic Neck: trachea midline Respiratory/Chest: no respiratory distress, no accessory muscle use Abdomen: soft, no organomegaly, no pulsatile mass, + distended (mild), + tenderness (Incisional mild) Incision(s): clean, dry, intact, no erythema, no drainage Laboratory Results: Results Past 24 Hours Test 01/18/18 06:25 Range/Units Assessment & Plan POD #1 s/p Laparoscopic Sigmoid Colon Resection; Enterolysis; Left Salpingo- Oophorectomy. Doing well, pain controlled. Mild incisional tenderness, abdomen soft, mildly distended. Tolerating chips/sips, No N/V. No flatus or BM yet. Saldana in place. PATY in place. Patient reports saldana uncomfortable and would like removed - will d/c. Start clears - advance as bowel fx returns. Keep PATY. Lovenox starting this AM. Will discuss findings with Dr. Esquivel. Please contact with questions or concerns.
[2018-01-18 07:25] VITALS: BP 142/75; PULSE 79; TEMP 36.7; O2SAT 97
[2018-01-18 07:38] LABS: CALCIUM 8.7 mg/dl (8.5-10.1); CREATININE 0.89 mg/dl (0.60-1.20); POTASSIUM 3.4 mmol/L (3.5-5.1)
[2018-01-18] MEDS: PANTOprazole SOD 40 MG TAB PO SCH (07:41)
[2018-01-18] MEDS: ACETAMINOPHEN IV 100 ML IV SCH (07:42)
--- NOTE | 2018-01-18 08:14 | Anesthesiology Progress Note ---
Anesthesia Post Op Note Date & Time Jan 18, 2018 at 08:14 Vital Signs Pain Intensity: 0.0 Vital Signs Past 12 Hours Date Time Temp Pulse Resp B/P (MAP) Pulse Ox O2 Delivery O2 Flow Rate FiO2 01/18/18 07:25 36.7 79 16 142/75 (97) 97 Room Air 01/18/18 03:46 36.8 89 16 124/66 (85) 94 Room Air 01/17/18 23:50 Room Air 01/17/18 23:04 36.8 90 16 150/75 (100) 96 Room Air Notes Mental Status: alert / awake / arousable, participated in evaluation Pt Amnestic to Procedure: Yes Nausea / Vomiting: adequately controlled Pain: adequately controlled Airway Patency, RR, SpO2: stable & adequate BP & HR: stable & adequate Hydration State: stable & adequate Anesthetic Complications: no major complications apparent
[2018-01-18 08:38] VITALS: O2SAT 97
[2018-01-18] MEDS: ENOXAPARIN 40 MG/0.4 ML SYR SQ SCH (08:59)
[2018-01-18 15:14] VITALS: BP 153/79; PULSE 95; TEMP 37.1; O2SAT 97
[2018-01-18 15:15] VITALS: Ht 175.3 cm; Wt 84.0 kg
[2018-01-18 23:03] VITALS: BP 149/81; PULSE 87; TEMP 36.9; O2SAT 95
[2018-01-19 06:25] LABS: BASO % 0.5 %; BASO ABS # 0.05 K/uL (0-0.2); EOS ABS # 0.32 K/uL (0-0.5); HEMATOCRIT 36.1 % (37-47); HEMOGLOBIN 12.2 g/dL (12.0-16.0); IG# 0.03 K/uL (0.00-0.02); LYMPH % 33.5 %; LYMPH ABS # 3.53 K/uL (1.2-3.4); MEAN CELL VOLUME 84.9 fL (80-100); MEAN CORPUSCULAR HEMOGLOBIN 28.7 pg (25-34); MEAN CORPUSCULAR HGB CONC 33.8 g/dl (32-36); MEAN PLATELET VOLUME 10.2 fL (7.4-10.4); MONO % 9.2 %; MONO ABS # 0.97 K/uL (0.11-0.59); NEUT % 53.5 %; NEUT ABS # 5.64 K/uL (1.4-6.5); PLATELET COUNT 215 K/uL (130-400); RED CELL DISTRIBUTION WIDTH CV 13.1 % (11.5-14.5); RED CELL DISTRIBUTION WIDTH SD 40.1 fL (36.4-46.3); WHITE BLOOD COUNT 10.54 K/uL (4.8-10.8)
[2018-01-19 07:03] LABS: CALCIUM 8.5 mg/dl (8.5-10.1); CREATININE 0.57 mg/dl (0.60-1.20); POTASSIUM 3.4 mmol/L (3.5-5.1)
[2018-01-19 08:02] VITALS: BP 134/76; PULSE 99; TEMP 36.7; O2SAT 98
[2018-01-19] MEDS: LACTATED RINGER'S 1000ML 1,000 ML IV SCH ×2 (08:35→20:33)
[2018-01-19] MEDS: PANTOprazole SOD 40 MG TAB PO SCH (08:36)
[2018-01-19] MEDS: ENOXAPARIN 40 MG/0.4 ML SYR SQ SCH (08:37)
--- NOTE | 2018-01-19 10:39 | Surgery Progress Note ---
Surgery Progress Note Date of Service Jan 19, 2018. Subjective Post OP Day: 2 (s/p lap assisted sigmoid resection) + feeling well, + ambulating, + bowel movement, + flatus, + pain controlled, + diet (clear liquids), No complaints, No chest pain, No SOB, No nausea, No vomiting Objective Vital Signs: Date Time Temp Pulse Resp B/P (MAP) Pulse Ox O2 Delivery O2 Flow Rate FiO2 01/19/18 08:02 36.7 99 18 134/76 (95) 98 Room Air 01/19/18 07:30 Room Air 01/18/18 23:58 Room Air 01/18/18 23:03 36.9 87 16 149/81 (103) 95 Room Air 01/18/18 15:18 Room Air 01/18/18 15:14 37.1 95 16 153/79 (103) 97 Room Air Physical Exam: PATY drainage (serosanguineous) General Appearance: WD/WN, no apparent distress Head: normocephalic, atraumatic Neck: trachea midline Respiratory/Chest: no respiratory distress, no accessory muscle use Abdomen: normal bowel sounds, non tender, non distended, soft, no organomegaly , no pulsatile mass Incision(s): clean, dry, intact, no drainage, ecchymosis (surrounding incision site) Laboratory Results: Results Past 24 Hours Test 01/19/18 06:03 Range/Units White Blood Count 10.54 4.8-10.8 K/uL Red Blood Count 4.25 4.2-5.4 M/uL Hemoglobin 12.2 12.0-16.0 g/dL Hematocrit 36.1 37-47 % Mean Corpuscular Volume 84.9 80-100 fL Mean Corpuscular Hemoglobin 28.7 25-34 pg Mean Corpuscular Hemoglobin Concent 33.8 32-36 g/dl Platelet Count 215 130-400 K/uL Mean Platelet Volume 10.2 7.4-10.4 fL Neutrophils (%) (Auto) 53.5 % Lymphocytes (%) (Auto) 33.5 % Monocytes (%) (Auto) 9.2 % Eosinophils (%) (Auto) 3.0 % Basophils (%) (Auto) 0.5 % Neutrophils # (Auto) 5.64 1.4-6.5 K/uL Lymphocytes # (Auto) 3.53 1.2-3.4 K/uL Monocytes # (Auto) 0.97 0.11-0.59 K/uL Eosinophils # (Auto) 0.32 0-0.5 K/uL Basophils # (Auto) 0.05 0-0.2 K/uL RDW Standard Deviation 40.1 36.4-46.3 fL RDW Coefficient of Variation 13.1 11.5-14.5 % Immature Granulocyte % (Auto) 0.3 % Immature Granulocyte # (Auto) 0.03 0.00-0.02 K/uL Sodium Level 138 136-145 mmol/L Potassium Level 3.4 3.5-5.1 mmol/L Chloride Level 106 98-107 mmol/L Carbon Dioxide Level 27 21-32 mmol/L Anion Gap 5.0 3-11 mmol/L Blood Urea Nitrogen 7 7-18 mg/dl Creatinine 0.57 0.60-1.20 mg/dl Est Creatinine Clear Calc Drug Dose 113.9 ml/min Estimated GFR () 112.7 Estimated GFR (Non- 97.3 BUN/Creatinine Ratio 12.1 10-20 Random Glucose 86 70-99 mg/dl Calcium Level 8.5 8.5-10.1 mg/dl Assessment & Plan POD #2 s/p Laparoscopic Sigmoid Colon Resection; Enterolysis; Left Salpingo- Oophorectomy. Doing well, pain controlled. Mild incisional tenderness, abdomen soft. Tolerating clears VSS, afebrile - + return of bowel function - ambulating and urinating without difficulty - PATY with 20 cc output last shift, serosanguineous -Hypokalemia Plan: Will add po Percocet and Tylenol prn pain Advance diet to full liquids Decrease IV fluids to 75 mls/hr continue Lovenox Continue ambulation and OOB to chair 20 meq of Potassium today repeat am labs Dr. Garcia has seen and examined patient, agrees with above
[2018-01-19] MEDS ORDERED: POTASSIUM CHLORIDE 20 MEQ TABCR PO ONE (10:45)
[2018-01-19] MEDS ORDERED: ACETAMINOPHEN 325 MG TAB PO PRN (10:45)
[2018-01-19] MEDS ORDERED: OXYCODONE/ACETAMINOPHEN 5-325 TAB PO PRN ×2 (10:45)
[2018-01-19 15:21] VITALS: BP 142/75; PULSE 104; TEMP 36.8; O2SAT 95
[2018-01-19 23:00] VITALS: BP 149/84; PULSE 94; TEMP 36.9; O2SAT 95
[2018-01-20 07:19] VITALS: BP 148/77; PULSE 62; TEMP 36.9; O2SAT 97
[2018-01-20 07:42] LABS: BASO % 0.3 %; BASO ABS # 0.03 K/uL (0-0.2); EOS % 6.6 %; EOS ABS # 0.58 K/uL (0-0.5); HEMATOCRIT 36.4 % (37-47); HEMOGLOBIN 12.3 g/dL (12.0-16.0); IG# 0.02 K/uL (0.00-0.02); LYMPH % 26.4 %; LYMPH ABS # 2.32 K/uL (1.2-3.4); MEAN CELL VOLUME 85.2 fL (80-100); MEAN CORPUSCULAR HEMOGLOBIN 28.8 pg (25-34); MEAN CORPUSCULAR HGB CONC 33.8 g/dl (32-36); MEAN PLATELET VOLUME 10.6 fL (7.4-10.4); MONO % 9.2 %; MONO ABS # 0.81 K/uL (0.11-0.59); NEUT % 57.3 %; NEUT ABS # 5.02 K/uL (1.4-6.5); PLATELET COUNT 230 K/uL (130-400); RED CELL DISTRIBUTION WIDTH CV 13.1 % (11.5-14.5); RED CELL DISTRIBUTION WIDTH SD 40.5 fL (36.4-46.3); WHITE BLOOD COUNT 8.78 K/uL (4.8-10.8)
[2018-01-20 08:20] LABS: CALCIUM 8.7 mg/dl (8.5-10.1); CREATININE 0.49 mg/dl (0.60-1.20)
[2018-01-20] MEDS ORDERED: OXYC-57 PO (08:33)
--- NOTE | 2018-01-20 08:38 | Discharge Instructions ---
Discharge Instructions Date of Service Jan 20, 2018. Admission Reason for Admission: Diverticulitis Discharge Discharge Diagnosis / Problem: same Discharge Goals Goal(s): Decrease discomfort, Improve function Activity Recommendations Activity Limitations: per Instructions/Follow-up section No heavy lifting over 10 pounds for 4-6 weeks No strenuous activity until cleared by surgeon No submerging incisions underwater for 2 weeks (no bathing, swimming, or hot tubs) No driving while taking narcotic pain medication or until you are pain free . Instructions / Follow-Up Instructions / Follow-Up You may shower when you get home Gently clean incisions with soap and water The site of the drain will heal on its own. Keep covered daily and change as needed to keep clean and dry. Walking and light activity is encouraged to prevent blood clots from forming You will be given prescription for narcotic pain medication as needed for moderate to severe pain. This medication may make you drowsy. You may take extra strength Tylenol or Ibuprofen as needed for mild pain Take Amoxicillin for 5 days at home , if you notice increasing redness drainage pain or swelling of the lower left abdominal incision please call Dr. Esquivel' s office. Follow-up with Dr. Esquivel in 1 week, please call their office for follow-up appointment if you do not already have one scheduled. Current Hospital Diet Patient's current hospital diet: Low Fiber Diet Discharge Diet Recommended Diet: Low Fiber Diet Procedures Procedures Performed: Laparoscopic Sigmoid Colon Resection; Enterolysis; Left Salpingo-Oophorectomy Pending Studies Studies pending at discharge: yes List of pending studies: Sigmoid colon pathology, will be reveiwed at your follow up visit Medical Emergencies . Who to Call and When: Medical Emergencies: If at any time you feel your situation is an emergency, please call 911 immediately. . Non-Emergent Contact Non-Emergency issues call your: Primary Care Provider, Surgeon Call Non-Emergent contact if: you have a fever, temperature is above 101, your pain is not controlled, your pain is worsening, your pain is unusual for you, wound has increased drainage, wound has increased redness, wound has increased pain . "Provider Documentation" section prepared by Nena Lynn. . [place] Drug Monitoring Program Search Results: patient reviewed within database, no issues identified
[2018-01-20] MEDS: PANTOprazole SOD 40 MG TAB PO SCH (09:13)
[2018-01-20] MEDS: ENOXAPARIN 40 MG/0.4 ML SYR SQ SCH (09:14)
--- NOTE | 2018-01-20 09:19 | Surgery Progress Note ---
Surgery Progress Note Date of Service Jan 20, 2018. Subjective Post OP Day: 3 (s/p laparoscpic assisted sigmoid colectomy) + feeling well, + ambulating, + bowel movement, + flatus, + pain controlled, + diet (low fiber diet), No complaints, No chest pain, No SOB, No nausea, No vomiting Objective Vital Signs: Date Time Temp Pulse Resp B/P (MAP) Pulse Ox O2 Delivery O2 Flow Rate FiO2 01/20/18 07:19 36.9 62 19 148/77 (100) 97 Room Air 01/20/18 00:00 Room Air 01/19/18 23:00 36.9 94 16 149/84 (105) 95 Room Air 01/19/18 15:21 36.8 104 20 142/75 (97) 95 Room Air 01/19/18 15:15 Room Air Physical Exam: PATY drainage (serous) General Appearance: WD/WN, no apparent distress Head: normocephalic, atraumatic Neck: trachea midline Respiratory/Chest: no respiratory distress, no accessory muscle use Abdomen: non tender, non distended, soft, no organomegaly, no pulsatile mass Incision(s): clean, dry, intact, erythema (surrounding left lower incision with ecchymosis, mild warmth to touch no induration or flucutance) Laboratory Results: Results Past 24 Hours Test 01/20/18 06:49 01/20/18 08:50 Range/Units White Blood Count 8.78 4.8-10.8 K/uL Red Blood Count 4.27 4.2-5.4 M/uL Hemoglobin 12.3 12.0-16.0 g/dL Hematocrit 36.4 37-47 % Mean Corpuscular Volume 85.2 80-100 fL Mean Corpuscular Hemoglobin 28.8 25-34 pg Mean Corpuscular Hemoglobin Concent 33.8 32-36 g/dl Platelet Count 230 130-400 K/uL Mean Platelet Volume 10.6 7.4-10.4 fL Neutrophils (%) (Auto) 57.3 % Lymphocytes (%) (Auto) 26.4 % Monocytes (%) (Auto) 9.2 % Eosinophils (%) (Auto) 6.6 % Basophils (%) (Auto) 0.3 % Neutrophils # (Auto) 5.02 1.4-6.5 K/uL Lymphocytes # (Auto) 2.32 1.2-3.4 K/uL Monocytes # (Auto) 0.81 0.11-0.59 K/uL Eosinophils # (Auto) 0.58 0-0.5 K/uL Basophils # (Auto) 0.03 0-0.2 K/uL RDW Standard Deviation 40.5 36.4-46.3 fL RDW Coefficient of Variation 13.1 11.5-14.5 % Immature Granulocyte % (Auto) 0.2 % Immature Granulocyte # (Auto) 0.02 0.00-0.02 K/uL Sodium Level 138 136-145 mmol/L Potassium Level 3.5-5.1 mmol/L Chloride Level 106 98-107 mmol/L Carbon Dioxide Level 28 21-32 mmol/L Anion Gap 4.0 3-11 mmol/L Blood Urea Nitrogen 6 7-18 mg/dl Creatinine 0.49 0.60-1.20 mg/dl Est Creatinine Clear Calc Drug Dose 132.5 ml/min Estimated GFR () 118.5 Estimated GFR (Non- 102.2 BUN/Creatinine Ratio 11.2 10-20 Random Glucose 88 70-99 mg/dl Calcium Level 8.7 8.5-10.1 mg/dl Assessment & Plan POD #3 s/p Laparoscopic Sigmoid Colon Resection; Enterolysis; Left Salpingo- Oophorectomy. Doing well, pain controlled. Mild incisional tenderness, abdomen soft. Tolerating low fiber diet VSS, afebrile - + return of bowel function - ambulating and urinating without difficulty - PATY with 55 cc output last 24 hours, serosanguineous Plan: d/c home today d/c drain prior to discharge Rx for percocet prn pain follow up Dr. Esquivel as scheduled Dr. Garcia has seen and examined patient, agrees with above
[2018-01-20 11:02] VITALS: BP 148/77; PULSE 62; TEMP 36.9; O2SAT 97
[2018-01-20] MEDS: LACTATED RINGER'S 1000ML 1,000 ML IV SCH (11:09)
--- NOTE | 2018-01-21 15:13 | DISCHARGE SUMMARY ---
PRIMARY DISCHARGE DIAGNOSIS: Recurrent diverticulitis with microperforation. SECONDARY DISCHARGE DIAGNOSIS: Gastroesophageal reflux disease. PROCEDURE PERFORMED: Laparoscopic sigmoid colon resection with enterolysis and left salpingo-oophorectomy. HOSPITAL COURSE: Patient is a 67-year-old female with recent complicated diverticulitis, now brought back through same day and taken to the operating room for laparoscopic sigmoid colon resection. The left ovary and fallopian tube were severely adherent to the sigmoid colon were additionally resected. The procedure was well tolerated. She was transferred to the surgical floor. Lovenox was used for DVT prophylaxis. She was started on clear liquids on postoperative day 1. She had returning bowel function on postoperative day 2, was able to tolerate an advancing diet. By postoperative day 3, she had multiple bowel movements. She was able to tolerate regular diet. She was tolerating oral analgesics. Her abdomen was benign. She was stable for discharge. DISCHARGE INSTRUCTIONS: Discharge home. Follow up with Dr. Esquivel within 1-2 weeks. DISCHARGE MEDICATIONS: Percocet 1-2 tablets every 4 hours as needed. Continue home aspirin 81 mg daily and Protonix 40 mg daily.
== END 2018-01-20 11:59 | disposition home or self-care (01) | DRG 331 ==
LOC: C.ACU 10:00 → C.MSN 13:20 → ENRESERV 14:03
PROVIDERS: ADMIT Surgery; ATTEND Surgery
PROC: 0DTN4ZZ Resection of Sigmoid Colon, Percutaneous Endoscopic Approach (ICD-10-PCS; principal; 2018-01-17 12:00)
PROC: 0DNN4ZZ Release Sigmoid Colon, Percutaneous Endoscopic Approach (ICD-10-PCS; principal; 2018-01-17 12:00)
PROC: 0UT64ZZ Resection of Left Fallopian Tube, Percutaneous Endoscopic Approach (ICD-10-PCS; principal; 2018-01-17 12:00)
PROC: 0UT14ZZ Resection of Left Ovary, Percutaneous Endoscopic Approach (ICD-10-PCS; principal; 2018-01-17 12:00)
DX: K57.92 Diverticulitis of intestine, part unspecified, without perforation or abscess without bleeding (principal); N73.6 Female pelvic peritoneal adhesions (postinfective); K21.9 Gastro-esophageal reflux disease without esophagitis; Z51.81 Encounter for therapeutic drug level monitoring; Z79.899 Other long term (current) drug therapy; Z79.82 Long term (current) use of aspirin; Z87.19 Personal history of other diseases of the digestive system; Z87.891 Personal history of nicotine dependence; Z88.2 Allergy status to sulfonamides; Z88.8 Allergy status to other drugs, medicaments and biological substances; Z82.5 Family history of asthma and other chronic lower respiratory diseases; Z82.49 Family history of ischemic heart disease and other diseases of the circulatory system; Z80.3 Family history of malignant neoplasm of breast

== ENCOUNTER 2019-11-20 08:46 | Observation (INO) ==
[2019-11-20] MEDS ORDERED: ASPIRIN CHEW 324 MG PO STA (09:04)
[2019-11-20 09:17] LABS: Basophils # (auto) 0.04 K/uL (0-0.2); Basophils % (auto) 0.4 %; Eosinophils # (auto) 0.21 K/uL (0-0.5); Eosinophils % (auto) 2.1 %; Hematocrit (blood only) 41.4 % (37-47); Hemoglobin 14.2 g/dL (12.0-16.0); Immature Granulocytes # (auto) 0.04 K/uL (0.00-0.02); Immature Granulocytes % (auto) 0.4 %; Lymphocytes # (auto) 4.13 K/uL (1.2-3.4); Lymphocytes % (auto) 40.5 %; Mean Corpuscular Hemoglobin 29.8 pg (25-34); Mean Corpuscular Hgb Conc 34.3 g/dL (32-36); Mean Corpuscular Volume 86.8 fL (80-100); Monocytes % (auto) 7.8 %; Neutrophils # (auto) 4.99 K/uL (1.4-6.5); Neutrophils % (auto) 48.8 %; Platelet Count 249 K/uL (130-400); RDW Coefficient of Variation 12.9 % (11.5-14.5); Red Blood Count 4.77 M/uL (4.2-5.4); White Blood Count 10.21 K/uL (4.8-10.8)
--- NOTE | 2019-11-20 09:30 | XRay Report ---
XR chest 1V portable CLINICAL HISTORY: Chest Pain dyspnea COMPARISON STUDY: 12/13/2009 FINDINGS: The bones soft tissues and hemidiaphragms are normal. The cardiomediastinal silhouette is n ormal. The lungs are clear. The pulmonary vasculature is normal. IMPRESSION: Negative chest. ACT 112: Negative or not required by law. The above report was generated using voice recognition software. It may contain grammatical, syntax or spelling errors. Electronically signed by: Dylan Ma M.D. 11/20/2019 9:29 AM
[2019-11-20 09:33] LABS: Alanine Aminotransferase 14 U/L (12-78); Albumin Level 3.9 gm/dl (3.4-5.0); Aspartate Aminotransferase 14 U/L (15-37); BUN Creatinine Ratio 15.6 (10-20); Blood Urea Nitrogen 12 mg/dl (7-18); Calcium 9.2 mg/dl (8.5-10.1); Carbon Dioxide 24 mmol/L (21-32); Chloride 107 mmol/L (98-107); Creatinine Clr Calc Pharmacy 88.1 ml/min; Est GFR (African American) 97.2; Est GFR (Non-African American) 83.8; Glucose 100 mg/dl (70-99); Lipase 138 U/L (73-393); Potassium 3.3 mmol/L (3.5-5.1); Sodium 137 mmol/L (136-145)
[2019-11-20] MEDS ORDERED: POTASSIUM CHLORIDE 20 MEQ TABCR PO STA (09:37)
[2019-11-20 09:38] LABS: Albumin Globulin Ratio 0.9 (0.9-2); Alkaline Phosphatase 81 U/L (45-117); Bilirubin,Total 0.5 mg/dl (0.2-1); Creatine Kinase 71 U/L (26-192); Creatine Kinase MB 1.4 ng/ml (0.5-3.6); Globulin 4.2 gm/dl (2.5-4.0); Total Protein 8.1 gm/dl (6.4-8.2); Troponin I < 0.015 ng/ml (0-0.045)
[2019-11-20 09:45] LABS: Partial Thromboplastin Ratio 0.9; Partial Thromboplastin Time 25.1 Seconds (21.0-31.0); Prothrombin Time 9.8 Seconds (9.0-12.0)
[2019-11-20 09:57] LABS: D Dimer 780 ug/L FEU (0-500)
[2019-11-20] MEDS ORDERED: OPTIRAY 320 125ml IV PRN (10:27)
--- NOTE | 2019-11-20 10:44 | CT Scan Report ---
CT angio chest PE protocol CLINICAL HISTORY: 69 years-old Female presenting with atypical chest pain, clinical concern for pulmo nary embolus. TECHNIQUE: Multidetector CT angiography of the chest was performed after administration of intravenou s contrast. 3-D volumetric and/or maximum intensity projection (MIP) images were subsequently reconst ructed for review. IV contrast: 118 mL of Optiray 320. One or more dose lowering techniques were used consistent with the principles of ALARA (as low as reasonably achievable), including automatic expos ure control, mA or kV adjustment to individual patient size, and/or use of iterative reconstruction. COMPARISON: CTA chest from 2009. CT DOSE (mGy.cm): The estimated cumulative dose is 531.53 mGycm. FINDINGS: Engineering And Operations Director topogram: Cholecystectomy clips. Pulmonary vasculature: The study is adequate for assessment of the pulmonary vascular tree. No filling defect within the pul monary arteries to suggest embolus. Main pulmonary artery is not enlarged. No flattening of the inter ventricular septum. No intracardiac filling defect. No reflux of contrast into the hepatic veins. Remaining chest: Soft tissues: Normal thyroid and thoracic inlet. Calcified subcarinal lymph node indicates a history of granulomatous disease. No axillary, supraclavicular, mediastinal, or hilar lymphadenopathy. Normal aorta. Normal heart size. No pericardial or pleural effusion. Upper abdomen normal. Lungs and airways: No pneumothorax. Central airways patent. Pulmonary arteries are not significantly enlarged relative to adjacent bronchi. No interlobular septal thickening. Minimal dependent changes l ikely atelectasis. Musculoskeletal: Normal osseous structures. IMPRESSION: 1. No evidence of pulmonary embolus. No acute intrathoracic pathology. ACT 112: Negative or not required by law. Electronically signed by: Joe Stearns M.D. 11/20/2019 10:43 AM
--- NOTE | 2019-11-20 12:05 | History & Physical Report ---
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 HTN (no prior diagnosis however BP elevated today) -S/p full dose aspirin in the ED, continue with 81 mg daily -PRN nitro and EKG for further episodes of chest pain -May be some musculoskeletal component or due to hypertensive urgency -Continue to cycle cardiac enzymes, check resting echo -Stress echo 03/2016: Negative for ischemia, grade 1 diastolic dysfunction -Cardiology consult (2) Hypertension: -BP elevated today, no prior diagnosis of hypertension -Start amlodipine 5 mg (3) Dyslipidemia: -Patient is statin intolerant, self stopped Zetia several months ago (4) Esophageal reflux: -Continue PPI (5) DVT prophylaxis: -SQ Lovenox History of Present Illness Chief Complaint: Chest pain Primary Care Provider: Marjan Mishra, 69-year-old female who presents the ED for evaluation of chest pain. Patient reports that she was getting ready this morning when she developed a right shoulder pain that radiated into her chest. Patient reports she has had this sensation in the past and it was attributed to a previous right shoulder surgery. Reports the pain she experienced today was different than the previous experience. Describes the pain today as a pressure. She reports she had associated nausea. She reports the discomfort only lasted for about 1 minute and then resolved on its own. Patient reports he took her blood pressure and systolic BP was 150. She denies associated shortness of breath, diaphoresis, lightheadedness, syncopal event. Reports she otherwise been feeling well recently. Reports she has been tolerating her activities of daily living without any change. Denies any other recent illnesses, fevers, chills. No vomiting or diarrhea. Denies any urinary symptoms. In the ED, initial troponin is negative and EKG is showing evidence of previous inferior infarction, no acute ST elevation or depression. BP is elevated, vitals otherwise stable. Patient was given a full dose aspirin. Allergies Allergy/AdvReac Type Severity Reaction Status Date / Time metronidazole Allergy Unknown "THROAT ON Verified 11/20/19 09:41 FIRE" prednisone Allergy Unknown HIVES/RACING Verified 11/20/19 09:41 HEART Djzrazk-Phv-Ddc Reductase Allergy Unknown MUSCLE Verified 11/20/19 09:41 Inhibitor ACHES Sulfa (Sulfonamide Allergy Unknown "THROAT Verified 11/20/19 09:41 Antibiotics) BURNING" venlafaxine Allergy Unknown "DELUSIONAL Verified 11/20/19 09:41 THOUGHTS" Home Medications Home Medications Medication Instructions Recorded Confirmed Type aspirin 81 mg tablet,delayed 81 mg PO DAILY@1000 09/09/19 11/20/19 History release pantoprazole 40 mg tablet,delayed 40 mg PO QAM 09/09/19 11/20/19 History release Past Med/Surg History Medical History Dyslipidemia Esophageal reflux (Chronic) Mitral valve prolapse Surgical History History of arthroscopy of right shoulder History of hysterectomy (Resolved) History of partial colectomy Due to diverticulitis Hx of cholecystectomy (Resolved) Family History Brother Heart disease Father Heart disease Brother Heart disease Sister Heart disease Social History Preferred Language: [place]an Communication Ability: Effective Rejected Items Clerk Required: No Beliefs That Will Affect Care: None Current Living Situation: Spouse Other Information That Helps Us Care for You: No Feels Safe at Home: Yes Safety Concerns: Feels Safe At This Time Smoking Status: Former smoker Hx Alcohol Use: No Hx Substance Use: No Review of Systems Review of Systems: ROS per HPI, all other systems reviewed and negative Physical Exam Constitutional: WD/WN, vitals as above Eyes: PERRL, conjunctivae normal, anicteric sclerae ENMT: external ear and nose normal, oropharynx normal Respiratory: normal respiratory effort, lungs clear to auscultation Cardiovascular: Rate/Rhythm: regular rate and regular rhythm Vessels: normal peripheral pulses Extremities: no edema Gastrointestinal (Abdomen): normal bowel sounds, soft, nontender, no hepatosplenomegaly Musculoskeletal: no cyanosis or clubbing, extremities motor strength 5/5 Tenderness over right subacromial space Skin: no rashes, warm and dry Neurologic: PERRL, EOMI, accommodation nl, no face palsy, no dysarthria Psychiatric: A+Ox3, euthymic affect Results & Data Vital Signs (Past 12 Hours) Vital Signs Temp Pulse Pulse Resp BP BP Pulse Ox 11/20/19 11:29 95 H 20 170/78 H 95 11/20/19 10:19 89 20 151/70 H 99 11/20/19 09:30 95 11/20/19 09:27 90 18 174/88 H 96 11/20/19 08:49 36.8 C 91 H 16 163/93 H 96 Laboratory Results Short CBC 11/20/19 Range/Units 09:02 WBC 10.21 (4.8-10.8) K/uL Hgb 14.2 (12.0-16.0) g/dL Hct 41.4 (37-47) % Plt Count 249 (130-400) K/uL BMP 11/20/19 09:02 Sodium 137 Potassium 3.3 L Chloride 107 Carbon Dioxide 24 BUN 12 Creatinine 0.74 Glucose 100 H Calcium 9.2 Cardiac Enzymes 11/20/19 Range/Units 09:02 Total Creatine Kinase 71 (26-192) U/L CK-MB (CK-2) 1.4 (0.5-3.6) ng/ml Troponin I < 0.015 (0-0.045) ng/ml Liver Function 11/20/19 Range/Units 09:02 Total Bilirubin 0.5 (0.2-1) mg/dl AST 14 L (15-37) U/L ALT 14 (12-78) U/L Alkaline Phosphatase 81 (45-117) U/L Albumin 3.9 (3.4-5.0) gm/dl Diagnostic Findings CHEST CTA IMPRESSION: 1. No evidence of pulmonary embolus. No acute intrathoracic pathology. CXR IMPRESSION: 1. No evidence of pulmonary embolus. No acute intrathoracic pathology. Code Status & VTE Plan VTE Prophylaxis Plan VTE Prophylaxis will be ordered: Yes Supervising Physician Co-Signing Physician Notes I have seen and examined the patient and have discussed the case with the provider above. I agree with the assessment and plan as stated. 69 yo F with atypical chest pain. Does not appear to be from cardiac origin based on findings today. Per my exam her pain had completely resolved and wasn't present long at all. She reports doing yearly treadmill stress tests in the past and "passed with flying colors." She also reports a history of R post-operative shoulder pain which causes a radiating burning pain up into her R neck and into her R anterior chest wall that is known. Physical exam is totally unremarkable and there is no TTP on her chest wall. Workup as above and normal echo today. Appreciate cardiology recommendations and disposition in the morning. Kt, DO
--- NOTE | 2019-11-20 13:13 | Emergency Department Note ---
Entered by Eliz Bernardo acting as a scribe for History of Present Illness General Chief complaint: Cardiac Assessment Stated complaint: RT SIDED SHOULDER AND CHEST DISCOMFORT Time Seen by Provider: 11/20/19 08:56 Source: patient History of Present Illness Onset (ago): hour(s) 1 Location: chest Radiation: other (right shoulder) Pain Consistency: + other (episode of sudden chest pain) Maximum Pain Intensity: 0 Quality: + sharp Relieved By: + none Exacerbated By: + none Associated symptoms: + chest pain; no shortness of breath Treatments prior to arrival: none The patient is a 69 year old female presenting to the Emergency Department complaining of an episode of sudden chest pain starting 1 hour ago. The patient reports that she was blow drying her hair and experienced a few seconds worth of chest pain that radiated to her right shoulder. She describes this pain as sharp. She explains that this pain resolved on its own. She notes that she doesnt know what triggered this pain and that nothing made it better, it just went away on its own. 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 The patient rep orts that she follows with [facility] cardiology and recently had an EKG done through them. She states that she has a cardiac stress test but that it was a few years ago. She notes that she has mitral valve prolapse. She adds that she used to smoke cigarettes many years ago. The patient denies shortness of breath. Home Medications Home Medications Medication Instructions Recorded Confirmed Type aspirin 81 mg tablet,delayed 81 mg PO DAILY@1000 09/09/19 11/20/19 History release pantoprazole 40 mg tablet,delayed 40 mg PO QAM 09/09/19 11/20/19 History release Allergies Allergy/AdvReac Type Severity Reaction Status Date / Time metronidazole Allergy Unknown "THROAT ON Verified 11/20/19 09:41 FIRE" prednisone Allergy Unknown HIVES/RACING Verified 11/20/19 09:41 HEART Iggnceg-Wqi-Gpk Reductase Allergy Unknown MUSCLE Verified 11/20/19 09:41 Inhibitor ACHES Sulfa (Sulfonamide Allergy Unknown "THROAT Verified 11/20/19 09:41 Antibiotics) BURNING" venlafaxine Allergy Unknown "DELUSIONAL Verified 11/20/19 09:41 THOUGHTS" Past Med/Surg History Medical History Dyslipidemia Esophageal reflux (Chronic) Mitral valve prolapse Surgical History History of arthroscopy of right shoulder History of hysterectomy (Resolved) History of partial colectomy Due to diverticulitis Hx of cholecystectomy (Resolved) Family History Brother Heart disease Father Heart disease Brother Heart disease Sister Heart disease Social History Feels Safe at Home: Yes Smoking Status: Former smoker Hx Alcohol Use: No Review of Systems See HPI for pertinent positives & negatives. and A total of 10 systems reviewed and were otherwise negative Physical Exam Vital Signs Vital Signs - 24 hr 11/20/19 08:49 11/20/19 09:27 11/20/19 09:30 Temperature 36.8 C Temperature Source Oral Pulse Rate 91 H Pulse Rate [Apical] 90 Pulse Rhythm [Apical] Regular Pulse Strength [Apical] Normal Respiratory Rate 16 18 Respiratory Effort / Characteristics Non-Labored Non-Labored Respiratory Depth Normal Normal Blood Pressure 163/93 H Blood Pressure [Left Arm] 174/88 H Blood Pressure Mean 116 Blood Pressure Mean [Left Arm] 116 Blood Pressure Position [Left Arm] Sitting Pulse Oximetry 96 96 95 Oxygen Delivery Method Room Air Room Air Room Air Sepsis Recent Fever Within 48 Hours No Sepsis New/Unexplained Change in Mental Status No Sepsis Action Taken by Nursing No Action Required 11/20/19 10:19 Temperature Temperature Source Pulse Rate Pulse Rate [Apical] 89 Pulse Rhythm [Apical] Regular Pulse Strength [Apical] Normal Respiratory Rate 20 Respiratory Effort / Characteristics Respiratory Depth Normal Blood Pressure Blood Pressure [Left Arm] 151/70 H Blood Pressure Mean Blood Pressure Mean [Left Arm] 97 Blood Pressure Position [Left Arm] Sitting Pulse Oximetry 99 Oxygen Delivery Method Room Air Sepsis Recent Fever Within 48 Hours Sepsis New/Unexplained Change in Mental Status Sepsis Action Taken by Nursing GENERAL: Awake, alert, well-appearing, in no acute distress HENT: Normocephalic, atraumatic. Oropharynx unremarkable. EYES: Normal conjunctiva. Sclera non-icteric. NECK: Supple. No nuchal rigidity. FROM. No JVD. RESPIRATORY: Clear to auscultation. CARDIAC: Regular rate, normal rhythm. Extremities warm and well perfused. Pulses equal. ABDOMEN: Soft, non-distended. No tenderness to palpation. No rebound or guarding. No masses. RECTAL: Deferred. MUSCULOSKELETAL: Chest examination reveals no tenderness. The back is symmetrical on inspection without obvious abnormality. There is no CVA t enderness to palpation. No joint edema. LOWER EXTREMITIES: Calves are equal size bilaterally and non-tender. No edema. No discoloration. NEURO: Normal sensorium. No sensory or motor deficits noted. SKIN: No rash or jaundice noted. Course Course 0858: The patient was evaluated in room C4, and a complete history and physical examination were performed. 1048: I discussed the patients case with Dr. Teodora Pitts cardiology. 1100: I discussed the patients case with Jasmyne Alvarez PA-C. Dr. Kt Pitts hospitalist will evaluate the patient for further management. Administered Medications Ioversol (Optiray 320 125ml) 118 ml IV ONCE PRN PRN Reason: Interaction Checking Stop: 11/24/19 10:26 Last Admin: 11/20/19 10:27 Dose: 118 ml Documented by: [id number] Discontinued Medications Aspirin (Aspirin) 324 mg PO NOW STA Stop: 11/20/19 09:05 Last Admin: 11/20/19 09:31 Dose: 324 mg Documented by: [id number] Potassium Chloride (Klor-Con M20) 40 meq PO NOW STA Stop: 11/20/19 09:38 Last Admin: 11/20/19 10:17 Dose: 40 meq Documented by: [id number] Medical Decision Making Differential Diagnosis Differential diagnoses includes but is not limited to acute coronary syndrome, myocardial infarction, pericarditis, pulmonary embolus, aortic dissection, pneumonia, pneumothorax, musculoskeletal, shingles, esophageal. Medical Records Attestation: I reviewed the patient's medical records. Home Medications Current Medication List: was personally reviewed by me Laboratory Data Attestation: I reviewed the patient's lab results. Result diagrams: 11/20/19 09:02 11/20/19 09:02 Lab Results 11/20/19 11/20/19 11/20/19 Range/Units 09:02 09:02 09:02 WBC 10.21 (4.8-10.8) K/uL RBC 4.77 (4.2-5.4) M/uL Hgb 14.2 (12.0-16.0) g/dL Hct 41.4 (37-47) % MCV 86.8 (80-100) fL MCH 29.8 (25-34) pg MCHC 34.3 (32-36) g/dL RDW Std Deviation 41.0 (36.4-46.3) fL RDW Coeff of Zeinab 12.9 (11.5-14.5) % Plt Count 249 (130-400) K/uL MPV 10.0 (7.4-10.4) fL Immature Gran % (Auto) 0.4 % Neut % (Auto) 48.8 % Lymph % (Auto) 40.5 % Smith % (Auto) 7.8 % Eos % (Auto) 2.1 % Baso % (Auto) 0.4 % Immature Gran # (Auto) 0.04 H (0.00-0.02) K/uL Neut # (Auto) 4.99 (1.4-6.5) K/uL Lymph # (Auto) 4.13 H (1.2-3.4) K/uL Smith # (Auto) 0.80 H (0.11-0.59) K/uL Eos # (Auto) 0.21 (0-0.5) K/uL Baso # (Auto) 0.04 (0-0.2) K/uL PT 9.8 (9.0-12.0) Seconds INR 1.0 (0.9-1.1) APTT 25.1 (21.0-31.0) Seconds PTT Ratio 0.9 D-Dimer 780 H* (0-500) ug/L FEU Sodium 137 (136-145) mmol/L Potassium 3.3 L (3.5-5.1) mmol/L Chloride 107 (98-107) mmol/L Carbon Dioxide 24 (21-32) mmol/L Anion Gap 7.0 (3-11) BUN 12 (7-18) mg/dl Creatinine 0.74 (0.6-1.2) mg/dl Est Cr Clr Drug Dosing 88.1 ml/min Est GFR ( Amer) 97.2 Est GFR (Non-Af Amer) 83.8 BUN/Creatinine Ratio 15.6 (10-20) Glucose 100 H (70-99) mg/dl Calcium 9.2 (8.5-10.1) mg/dl Magnesium (1.8-2.4) mg/dl Total Bilirubin 0.5 (0.2-1) mg/dl AST 14 L (15-37) U/L ALT 14 (12-78) U/L Alkaline Phosphatase 81 (45-117) U/L Total Creatine Kinase 71 (26-192) U/L CK-MB (CK-2) 1.4 (0.5-3.6) ng/ml CK/CKMB % Calc 2.0 (0-3.0) Troponin I < 0.015 (0-0.045) ng/ml Total Protein 8.1 (6.4-8.2) gm/dl Albumin 3.9 (3.4-5.0) gm/dl Globulin 4.2 H (2.5-4.0) gm/dl Albumin/Globulin Ratio 0.9 (0.9-2) Lipase 138 (73-393) U/L 11/20/19 Range/Units 09:02 WBC (4.8-10.8) K/uL RBC (4.2-5.4) M/uL Hgb (12.0-16.0) g/dL Hct (37-47) % MCV (80-100) fL MCH (25-34) pg MCHC (32-36) g/dL RDW Std Deviation (36.4-46.3) fL RDW Coeff of Zeinab (11.5-14.5) % Plt Count (130-400) K/uL MPV (7.4-10.4) fL Immature Gran % (Auto) % Neut % (Auto) % Lymph % (Auto) % Smith % (Auto) % Eos % (Auto) % Baso % (Auto) % Immature Gran # (Auto) (0.00-0.02) K/uL Neut # (Auto) (1.4-6.5) K/uL Lymph # (Auto) (1.2-3.4) K/uL Smith # (Auto) (0.11-0.59) K/uL Eos # (Auto) (0-0.5) K/uL Baso # (Auto) (0-0.2) K/uL PT (9.0-12.0) Seconds INR (0.9-1.1) APTT (21.0-31.0) Seconds PTT Ratio D-Dimer (0-500) ug/L FEU Sodium (136-145) mmol/L Potassium (3.5-5.1) mmol/L Chloride (98-107) mmol/L Carbon Dioxide (21-32) mmol/L Anion Gap (3-11) BUN (7-18) mg/dl Creatinine (0.6-1.2) mg/dl Est Cr Clr Drug Dosing ml/min Est GFR ( Amer) Est GFR (Non-Af Amer) BUN/Creatinine Ratio (10-20) Glucose (70-99) mg/dl Calcium (8.5-10.1) mg/dl Magnesium 2.2 (1.8-2.4) mg/dl Total Bilirubin (0.2-1) mg/dl AST (15-37) U/L ALT (12-78) U/L Alkaline Phosphatase (45-117) U/L Total Creatine Kinase (26-192) U/L CK-MB (CK-2) (0.5-3.6) ng/ml CK/CKMB % Calc (0-3.0) Troponin I (0-0.045) ng/ml Total Protein (6.4-8.2) gm/dl Albumin (3.4-5.0) gm/dl Globulin (2.5-4.0) gm/dl Albumin/Globulin Ratio (0.9-2) Lipase (73-393) U/L Imaging Data Radiologist's Impression: Radiology results as stated below per my review and the radiologist's interpretation: CT angio chest PE protocol CLINICAL HISTORY: 69 years-old Female presenting with atypical chest pain, clinical concern for pulmonary embolus. TECHNIQUE: Multidetector CT angiography of the chest was performed after administration of intravenous contrast. 3-D volumetric and/or maximum intensity projection (MIP) images were subsequently reconstructed for review. IV contrast: 118 mL of Optiray 320. One or more dose lowering techniques were used consistent with the principles of ALARA (as low as reasonably achievable), including automatic exposure control, mA or kV adjustment to individual patient size, and/or use of iterative reconstruction. COMPARISON: CTA chest from 2009. CT DOSE (mGy.cm): The estimated cumulative dose is 531.53 mGycm. FINDINGS: Sales Service Representative topogram: Cholecystectomy clips. Pulmonary vasculature: The study is adequate for assessment of the pulmonary vascular tree. No filling defect within the pulmonary arteries to suggest embolus. Main pulmonary artery is not enlarged. No flattening of the interventricular septum. No intracardiac filling defect. No reflux of contrast into the hepatic veins. Remaining chest: Soft tissues: Normal thyroid and thoracic inlet. Calcified subcarinal lymph node indicates a history of granulomatous disease. No axillary, supraclavicular, mediastinal, or hilar lymphadenopathy. Normal aorta. Normal heart size. No pericardial or pleural effusion. Upper abdomen normal. Lungs and airways: No pneumothorax. Central airways patent. Pulmonary arteries are not significantly enlarged relative to adjacent bronchi. No interlobular septal thickening. Minimal dependent changes likely atelectasis. Musculoskeletal: Normal osseous structures. IMPRESSION: 1. No evidence of pulmonary embolus. No acute intrathoracic pathology. ACT 112: Negative or not required by law. Electronically signed by: Joe Stearns M.D. 11/20/2019 10:43 AM XR chest 1V portable CLINICAL HISTORY: Chest Pain dyspnea COMPARISON STUDY: 12/13/2009 FINDINGS: The bones soft tissues and hemidiaphragms are normal. The cardiomediastinal silhouette is normal. The lungs are clear. The pulmonary vasculature is normal. IMPRESSION: Negative chest. ACT 112: Negative or not required by law. The above report was generated using voice recognition software. It may contain grammatical, syntax or spelling errors. Electronically signed by: Dylan Ma M.D. 11/20/2019 9:29 AM ECG Data Attestation: I personally reviewed and interpreted this ECG as follows: Indication: + chest pain Rate (beats per minute): 91 Rhythm: + normal sinus ECG Intervals/blocks: + Normal QT-c (QT-c 472.) ECG ST segments: + ST depression (ST depression in Lead 1.) and + ST elevation (ST elevation in V1.) ECG Findings: + Other (Old inferior infarct.) Comparison ECG Date: from (01/11/16) Change: the following changes noted (Old inferior infarct is new.) Blood Pressure Blood Pressure Findings: Elevated blood pressure Blood Pressure Disposition: further management by hospitalist [place] Paez This is a 69-year-old female who presents emergency department complaining of chest pain. The patient does have an elevation in her d-dimer therefore she was sent for CAT scan of the chest however this does not show any acute process. I am concerned because Jay patient's EKG is different from her previous EKGs. For this reason I did discuss the case with the neuro intensivist physician service who asked that the patient be admitted to the hospitalist service. I did discuss the case with the hospitalist service who did agree to with the patient. Patient family were in agreement with the treatment plan. Impression & Plan Chest pain Discharge Plan Visit Data *Final* Discharge Date/Time: 11/20/19 12:25 Chief Complaint: Cardiac Assessment Stated Complaint: RT SIDED SHOULDER AND CHEST DISCOMFORT ED Provider: Alf aKur Discharge Problem: Chest pain Patient Disposition: Admitted As Inpatient Discharge Instructions Interventions: ED Discharge Assessment Last Done: 11/20/19 12:25 Discharge Problem: Chest pain Qualifiers: Chest pain type: unspecified Qualified Code(s): R07.9 - Chest pain, unspecified The scribe's documentation has been prepared under my direction and personally reviewed by me in its entirety. I confirm that the note above accurately reflects all work, treatment, procedures, and medical decision making performed by me.
[2019-11-20] MEDS ORDERED: NITROGLYCERIN SL 0.4 MG/TAB TAB SL PRN (13:14)
[2019-11-20] MEDS ORDERED: ACETAMINOPHEN 325 MG TAB PO PRN (13:14)
--- NOTE | 2019-11-20 13:32 | Cardiology Consultation ---
Date of Consultation November 20, 2019 Assessment & Plan (1) Atypical chest pain: (2) Hypertension: (3) Dyslipidemia: (4) Statin intolerance: Assess troponin every 6 hours x 3 sets. Continue aspirin and Tylenol as needed. Agree with addition of low-dose calcium channel nette therapy for management of hypertension. Resting 2D transthoracic echocardiogram pending at this time. Continue telemetry monitoring. Discussed potential stress testing if evaluation for acute coronary syndrome is unremarkable. Patient prefers to pursue further noninvasive testing in the outpatient setting. Will observe overnight. Further recommendations in a.m. History of Present Illness Reason for Consultation: Chest pain Requesting Physician: Dr. Meraz Attending Physician: Saskia Meraz, DO History of Present Illness 69-year-old female presented to the emergency department with right shoulder and chest discomfort. Patient was attempting to put her earrings in this morning when she developed acute right shoulder discomfort which radiated to her chest. Symptoms lasted less than 1 minute. No associated shortness of breath, lightheadedness, palpitations, nausea, vomiting, dizziness, syncope, or near syncope. Symptoms resolve spontaneously. Patient reports feeling very anxious and assessed her home blood pressure which was elevated. Due to her concerns she came to the emergency department. In the ER patient pain-free. Baseline ECG demonstrates possible new age- indeterminate inferior infarct. No acute ST changes. Initial cardiac enzymes are negative. D-dimer mildly elevated prompting CT angiogram which is negative for pulmonary embolus. No acute intrathoracic pathology noted. Patient currently pain-free. She has been seen in the cardiology office in the past due to atypical chest pain and family history of premature coronary disease. Carries a history of statin intolerance as well. She offers no other concerns at this time. Allergies Allergy/AdvReac Type Severity Reaction Status Date / Time metronidazole Allergy Unknown "THROAT ON Verified 11/20/19 09:41 FIRE" prednisone Allergy Unknown HIVES/RACING Verified 11/20/19 09:41 HEART Avppioz-Pix-Lwt Reductase Allergy Unknown MUSCLE Verified 11/20/19 09:41 Inhibitor ACHES Sulfa (Sulfonamide Allergy Unknown "THROAT Verified 11/20/19 09:41 Antibiotics) BURNING" venlafaxine Allergy Unknown "DELUSIONAL Verified 11/20/19 09:41 THOUGHTS" Home Medications Home Medications Medication Instructions Recorded Confirmed Type aspirin 81 mg tablet,delayed 81 mg PO DAILY@1000 09/09/19 11/20/19 History release pantoprazole 40 mg tablet,delayed 40 mg PO QAM 09/09/19 11/20/19 History release Patient History Medical History Dyslipidemia Esophageal reflux (Chronic) Mitral valve prolapse Surgical History History of arthroscopy of right shoulder History of hysterectomy (Resolved) History of partial colectomy Due to diverticulitis Hx of cholecystectomy (Resolved) Family History Brother Heart disease Father Heart disease Brother Heart disease Sister Heart disease Social History Preferred Language: Bahamian Communication Ability: Effective Medical Esthetician Required: No Beliefs That Will Affect Care: None Current Living Situation: Spouse Other Information That Helps Us Care for You: No Feels Safe at Home: Yes Safety Concerns: Feels Safe At This Time Smoking Status: Former smoker Hx Alcohol Use: No Hx Substance Use: No Review of Systems Review of Systems: All systems reviewed & are unremarkable except as noted in HPI & below Physical Exam Constitutional: well developed and well nourished; no acute distress and not ill appearing Respiratory: normal respiratory effort, lungs clear to auscultation Cardiovascular: Rate/Rhythm: regular rate and regular rhythm Heart Sounds: normal S1 and normal S2; no gallop, no murmur and no cardiac rub Vessels: radial pulses present; no JVD Extremities: no edema Gastrointestinal (Abdomen): normal bowel sounds, soft, nontender, no hepatosplenomegaly Musculoskeletal: no cyanosis or clubbing, extremities motor strength 5/5 Skin: no rashes, warm and dry Neurologic: moves all extremities; no focal motor deficits Psychiatric: Orientation: alert and oriented x 3 Affect: + anxious affect Results & Data ([facility]) Vital Signs (Past 12 Hours) Vital Signs Temp Pulse Pulse Resp BP BP Pulse Ox 11/20/19 12:25 95 H 18 168/65 H 98 11/20/19 11:29 95 H 20 170/78 H 95 11/20/19 10:19 89 20 151/70 H 99 11/20/19 09:30 95 11/20/19 09:27 90 18 174/88 H 96 11/20/19 08:49 36.8 C 91 H 16 163/93 H 96 (1) Hypertension Hypertension type: essential hypertension Qualified Code(s): I10 - Essential (primary) hypertension
[2019-11-20] MEDS ORDERED: AMLODIPINE BESYLATE 5 MG TAB PO ONE (13:45)
[2019-11-20] MEDS ORDERED: ENOXAPARIN INJ 40 MG/0.4 ML SYR SQ SCH (14:00)
--- NOTE | 2019-11-21 00:19 | Electrocardiogram Report ---
Test Reason : Blood Pressure : / mmHG Vent. Rate : 091 BPM Atrial Rate : 091 BPM P-R Int : 166 ms QRS Dur : 110 ms QT Int : 384 ms P-R-T Axes : 061 -12 058 degrees QTc Int : 472 ms Normal sinus rhythm Possible Left atrial enlargement Incomplete right bundle branch block Left ventricular hypertrophy Inferior infarct , age undetermined Abnormal ECG When compared with ECG of 20-NOV-2014 10:33, Inferior infarct is now Present Confirmed by Chris Hardy ([id number]) on 11/21/2019 12:19:12 AM Referred By: REFERRED SELF Confirmed By:Chris Hardy
--- NOTE | 2019-11-21 06:00 | Electrocardiogram Report ---
Test Reason : Blood Pressure : / mmHG Vent. Rate : 087 BPM Atrial Rate : 087 BPM P-R Int : 164 ms QRS Dur : 098 ms QT Int : 384 ms P-R-T Axes : 065 -13 067 degrees QTc Int : 462 ms Poor data quality, interpretation may be adversely affected Normal sinus rhythm Possible Left atrial enlargement Incomplete right bundle branch block Left ventricular hypertrophy Inferior infarct (cited on or before 20-NOV-2014) Abnormal ECG When compared with ECG of 20-NOV-2019 08:57, No significant change was found Confirmed by Chris Hardy ([id number]) on 11/21/2019 6:00:32 AM Referred By: REFERRED SELF Confirmed By:Chris Hardy
[2019-11-21 07:29] LABS: Hematocrit (blood only) 40.2 % (37-47); Hemoglobin 13.8 g/dL (12.0-16.0); Mean Corpuscular Hemoglobin 29.9 pg (25-34); Mean Corpuscular Hgb Conc 34.3 g/dL (32-36); Mean Platelet Volume 10.2 fL (7.4-10.4); Platelet Count 256 K/uL (130-400); RDW Standard Deviation 41.6 fL (36.4-46.3); Red Blood Count 4.62 M/uL (4.2-5.4); White Blood Count 9.47 K/uL (4.8-10.8)
[2019-11-21 08:06] LABS: BUN Creatinine Ratio 15.6 (10-20); Creatinine Clr Calc Pharmacy 97.9 ml/min; Est GFR (African American) 105.9; Est GFR (Non-African American) 91.4; Potassium 3.5 mmol/L (3.5-5.1)
--- NOTE | 2019-11-21 08:59 | Hospitalist Progress Note ---
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 HTN (no prior diagnosis however BP elevated on 11/20/2019) -S/p full dose aspirin in the ED, continue with 81 mg daily -elevated D-Dimer on admission but no pulmonary embolism on CTA scan, negative troponin studies, normal echocardiogram, no acute telemetry events On hospitalist evaluation on 11/21/2019 Patient denies further chest or shoulder discomforts since coming from home on 11/20/2019. no acute telemetry events. hospitalist doctor and patient discussed results of normal cardiac and pulmonary workup. Likely cause of the chest pain at home is musculoskeletal in nature. any further cardiac such as outpatient stress test can be discussed with outpatient doctors. Patient wishes to be discharged. She agrees to trial of blood pressure medication of amlodipine 5 mg daily and outpatient follow ups amlodipine 5 mg daily sent electronically to [facility] [address] [place] [id number] upcoming appointments 11/25/2019 1:00 PM Provider Jasson Leach DO Department [facility] 11/27/2019 1:00 PM Provider Nena Marte PA-C Department [facility] 12/15/2019 9:00 AM Provider Anson Coon MD Department Cardiology, [facility] 12/16/2019 ESOPHAGOGASTRODUODENOSCOPY (EGD), FLEXIBLE, TRANSORAL, ENDOSCOPIC ULTRASOUND with gastroenterology Viral Riojas 12/18/2019 8:00 AM Provider [facility] ([facility]) Hypertension: -BP elevated on 11/20/2019 -could be situationally elevated, was started on amlodipine 5 mg daily as per admitting medical team on 11/20/2019, continue trial of amlodipine as outpatient (3) Dyslipidemia: -Patient is statin intolerant, self stopped Zetia several months ago -Patient can discuss any alternative cholesterol/lipid medications with outpatient doctors due to statin intolerance (4) Esophageal reflux: -Continue PPI (5) DVT prophylaxis: -SQ Lovenox Admission and Anticipated Discharge Date Admission Date: November 20, 2019 Subjective Patient denies further chest or shoulder discomforts since coming from home on 11/20/2019. no acute telemetry events. hospitalist doctor and patient discussed results of normal cardiac and pulmonary workup. Patient wishes to be discharged. She agrees to trial of blood pressure medication of amlodipine 5 mg daily and outpatient follow ups Review of Systems Review of Systems: All systems reviewed & are unremarkable except as noted in HPI & below Physical Exam Constitutional: WD/WN, vitals as above Eyes: PERRL, conjunctivae normal, anicteric sclerae EOM intact bilaterally ENMT: external ear and nose normal, oropharynx normal Neck: trachea midline, no thyromegaly normal visual inspection Respiratory: normal respiratory effort, lungs clear to auscultation Cardiovascular: Rate/Rhythm: regular rate and regular rhythm Gastrointestinal (Abdomen): normal bowel sounds, soft, nontender, no hepatosplenomegaly Musculoskeletal: Head/Neck/Chest: normocephalic and head atraumatic Neurologic: PERRL, EOMI, accommodation nl, no face palsy, no dysarthria CN's II-XI intact bilaterally Psychiatric: A+Ox3, euthymic affect Results & Data ([place]) Vital Signs (Past 12 Hours) Vital Signs Temp Pulse Pulse Resp BP Pulse Ox 11/21/19 07:16 36.6 C 83 18 135/79 96 11/21/19 04:20 36.7 C 84 18 130/81 95 11/21/19 00:18 36.7 C 82 20 148/88 H 96 11/20/19 23:00 76 (1) Hypertension Hypertension type: essential hypertension Qualified Code(s): I10 - Essential (primary) hypertension
[2019-11-21] MEDS ORDERED: ASPIRIN 81 MG ECTAB PO SCH (09:00)
[2019-11-21] MEDS ORDERED: PANTOprazole 40 MG TAB PO SCH (09:00)
[2019-11-21] MEDS ORDERED: AMLODIPINE BESYLATE 5 MG TAB PO SCH (09:00)
--- NOTE | 2019-11-21 09:10 | Discharge Summary ---
Date of Service November 21, 2019 Admission HPI Per Admitting Provider 69-year-old female who presents the ED for evaluation of chest pain. Patient reports that she was getting ready this morning when she developed a right shoulder pain that radiated into her chest. Patient reports she has had this sensation in the past and it was attributed to a previous right shoulder surgery. Reports the pain she experienced today was different than the previous experience. Describes the pain today as a pressure. She reports she had associated nausea. She reports the discomfort only lasted for about 1 minute and then resolved on its own. Patient reports he took her blood pressure and s ystolic BP was 150. She denies associated shortness of breath, diaphoresis, lightheadedness, syncopal event. Reports she otherwise been feeling well recently. Reports she has been tolerating her activities of daily living without any change. Denies any other recent illnesses, fevers, chills. No vomiting or diarrhea. Denies any urinary symptoms. In the ED, initial troponin is negative and EKG is showing evidence of previous inferior infarction, no acute ST elevation or depression. BP is elevated, vitals otherwise stable. Patient was given a full dose aspirin. Admission Exam Per Admitting Provider WD/WN, vitals as above Eyes: PERRL, conjunctivae normal, anicteric sclerae ENMT: external ear and nose normal, oropharynx normal Respiratory: normal respiratory effort, lungs clear to auscultation Cardiovascular: Rate/Rhythm: regular rate and regular rhythm Vessels: normal peripheral pulses Extremities: no edema Gastrointestinal (Abdomen): normal bowel sounds, soft, nontender, no hepatosplenomegaly Musculoskeletal: no cyanosis or clubbing, extremities motor strength 5/5 Tenderness over right subacromial space Skin: no rashes, warm and dry Neurologic: PERRL, EOMI, accommodation nl, no face palsy, no dysarthria Psychiatric: A+Ox3, euthymic affect Principal Diagnosis Atypical Chest Pain Hypertension Dyslipidemia Discharge Exam Constitutional WD/WN, vitals as above Eyes PERRL, conjunctivae normal, anicteric sclerae EOM intact bilaterally ENMT external ear and nose normal, oropharynx normal Neck trachea midline, no thyromegaly normal visual inspection Respiratory normal respiratory effort, lungs clear to auscultation Cardiovascular Rate/Rhythm: regular rate and regular rhythm Gastrointestinal (Abdomen) normal bowel sounds, soft, nontender, no hepatosplenomegaly Musculoskeletal Head/Neck/Chest: normocephalic and head atraumatic Neurologic PERRL, EOMI, accommodation nl, no face palsy, no dysarthria CN's II-XI intact bilaterally Psychiatric A+Ox3, euthymic affect Discharge Data Allergies Allergy/AdvReac Type Severity Reaction Status Date / Time metronidazole Allergy Unknown "THROAT ON Verified 11/20/19 09:41 FIRE" prednisone Allergy Unknown HIVES/RACING Verified 11/20/19 09:41 HEART Qhrwdhq-Fhy-Tcg Reductase Allergy Unknown MUSCLE Verified 11/20/19 09:41 Inhibitor ACHES Sulfa (Sulfonamide Allergy Unknown "THROAT Verified 11/20/19 09:41 Antibiotics) BURNING" venlafaxine Allergy Unknown "DELUSIONAL Verified 11/20/19 09:41 THOUGHTS" Consultations 11/20/19 10:52 Consult Cardiology Stat 11/20/19 11:01 ED Decision to Admit Stat 11/21/19 07:52 Consult Case Management - Discharge Planning Routine Ordered Studies 11/20/19 10:14 CT angio chest PE protocol Stat Hospital Course (1) Atypical chest pain: -Admit to telemetry -Patient presenting from home with reports of right shoulder pain radiating into her chest -In the ED, initial troponin negative, 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 HTN (no prior diagnosis however BP elevated on 11/20/2019) -S/p full dose aspirin in the ED, continue with 81 mg daily -elevated D-Dimer on admission but no pulmonary embolism on CTA scan, negative troponin studies, normal echocardiogram, no acute telemetry events On hospitalist evaluation on 11/21/2019 Patient denies further chest or shoulder discomforts since coming from home on 11/20/2019. no acute telemetry events. hospitalist doctor and patient discussed results of normal cardiac and pulmonary workup. Likely cause of the chest pain at home is musculoskeletal in nature. any further cardiac such as outpatient stress test can be discussed with outpatient doctors. Patient wishes to be discharged. She agrees to trial of blood pressure medication of amlodipine 5 mg daily and outpatient follow ups amlodipine 5 mg daily sent electronically to [facility] [place] [facility] [place] [id number] upcoming appointments 11/25/2019 1:00 PM Provider DO Peyman Grull[facility] 11/27/2019 1:00 PM Provider Nena Marte PA-C Department Family Practice [facility] 12/15/2019 9:00 AM Provider Anson Coon MD Department Cardiology, [facility] 12/16/2019 ESOPHAGOGASTRODUODENOSCOPY (EGD), FLEXIBLE, TRANSORAL, ENDOSCOPIC ULTRASOUND with gastroenterology Viral Riojas 12/18/2019 8:00 AM Provider [facility] ([facility]) Hypertension: -BP elevated on 11/20/2019 -could be situationally elevated, was started on amlodipine 5 mg daily as per admitting medical team on 11/20/2019, continue trial of amlodipine as outpatient (3) Dyslipidemia: -Patient is statin intolerant, self stopped Zetia several months ago -Patient can discuss any alternative cholesterol/lipid medications with outpatient doctors due to statin intolerance (4) Esophageal reflux: -Continue PPI (5) DVT prophylaxis: -SQ Lovenox Total Time Total Time Spent Total Time Spent (In Minutes): 40 minutes Total Time Includes: Examination of the Patient, Discharge Planning, Medication Reconciliation and Communication With Other Providers Discharge Plan Discharge Items Patient Disposition: Home - Self-Care Reason For Visit: CHEST PAIN Discharge Diagnosis: Atypical chest pain,Hypertension, Dyslipidemia Condition on Discharge: Good Non-emergency contact: Primary Care Provider and Appraiser Call non-emergency contact if: you have any medication questions Follow-up/Referrals: Marjan Mishra DO [Primary Care Provider] - Diet: Heart Healthy Add Attending Provider Instructions: -Patient presenting from home with reports of right shoulder pain radiating into her chest -In the ED, initial troponin negative, 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 HTN (no prior diagnosis however BP elevated on 11/20/2019) -S/p full dose aspirin in the ED, continue with 81 mg daily -elevated D-Dimer on admission but no pulmonary embolism on CTA scan, negative troponin studies, normal echocardiogram, no acute telemetry events On hospitalist evaluation on 11/21/2019 Patient denies further chest or shoulder discomforts since coming from home on 11/20/2019. no acute telemetry events. hospitalist doctor and patient discussed results of normal cardiac and pulmonary workup. Likely cause of the chest pain at home is musculoskeletal in nature.any further cardiac such as outpatient stress test can be discussed with oupatient doctors. Patient wishes to be discharged. She agrees to trial of blood pressure medication of amlodipine 5 mg daily and outpatient follow ups. Patient can discuss any alternative cholesterol/lipid medications with outpatient doctors due to statin intolerance amlodipine 5 mg daily sent electronically to [facility] [address] [place] [phone] upcoming appointments 11/25/2019 1:00 PM Provider Jasson Leach DO Department Family [facility] 11/27/2019 1:00 PM Provider Nena Marte PA-C Department [facility] 12/15/2019 9:00 AM Provider Anson Coon MD Department Cardiology, [facility] 12/16/2019 ESOPHAGOGASTRODUODENOSCOPY (EGD), FLEXIBLE, TRANSORAL, ENDOSCOPIC ULTRASOUND with gastroenterology Viral Riojas 12/18/2019 8:00 AM Provider [facility]iseo Dennis [facility] Pending Studies at Discharge: No Stand-Alone Forms: My [facility] [employer] Smoking Cessation Medications and DC Order Prescriptions: New amlodipine 5 mg tablet 5 mg PO DAILY 30 Days Qty: 30 RF: 0 Continued aspirin [Adult Low Dose Aspirin] 81 mg tablet,delayed release (DR/EC) 81 mg PO DAILY@1000 RF: 0 pantoprazole 40 mg tablet,delayed release (DR/EC) 40 mg PO QAM RF: 0 Discharge Orders: Discharge Order (Routine); Ordered 11/21/19 Ordered By: Vernon Kwan Admission Data Admit Date/Time: 11/20/19 11:26 Attending Provider: Vernon Kwan Admit Provider: Saskia Meraz Primary Care Provider: Marjan Mishra Other Providers: Steve Subramanian ; Saskia Meraz
--- NOTE | 2019-11-21 21:50 | Electrocardiogram Report ---
Test Reason : Blood Pressure : / mmHG Vent. Rate : 082 BPM Atrial Rate : 082 BPM P-R Int : 156 ms QRS Dur : 110 ms QT Int : 386 ms P-R-T Axes : 035 -10 071 degrees QTc Int : 450 ms Sinus rhythm with occasional Premature ventricular complexes Incomplete right bundle branch block Inferior infarct (cited on or before 20-NOV-2019) Abnormal ECG When compared with ECG of 20-NOV-2019 11:08, Premature ventricular complexes are now Present Confirmed by Chris Hardy ([id number]) on 11/21/2019 9:49:38 PM Referred By: REFERRED SELF Confirmed By:Chris Hardy
== END 2019-11-21 09:29 | disposition home or self-care (01) ==
LOC: ED 08:46 → 2S 08:46 → SUATTDRO 11:26 → 2S 12:25